=== PATIENT | female | born 1935 | race Caucasian/White ===

== ENCOUNTER 2016-08-03 10:00 | Inpatient (IN) | payer OTHER, BC ==
[2016-08-03 10:09] VITALS: BMI 48.0
--- NOTE | 2016-08-03 11:11 | PDOC ---
History of Present Illness - General Chief Complaint: Shortness of Breath Stated Complaint: sat 92% CONGESTIVE HEART FAILURE Time Seen by Provider: 08/03/16 11:08 History Source: Patient, Primary Care Provider Exam Limitations: No Limitations - History of Present Illness Initial Comments: 08/03/16 11:10 CHIEF COMPLAINT: Shortness of breath HISTORY OF PRESENT ILLNESS: This is a 81 year old female with a history of HTN, HLD, NIDDM, hypothyroidism, and LE edema (on Lasix 40mg po daily) referred by her PCP for evaluation of worsening LE edema with new shortness of breath/CARROLL ( < 1 block ET) since yesterday. She denies chest pain. She has had some dry cough. She denies fevers/chills or any other symptoms. V/s on arrival are notable for P 102 and SpO2 92% on RA. PCP is Dr. Beth REVIEW OF SYSTEMS: GENERAL/CONSTITUTIONAL: No fever or chills. No weakness. No weight change. HEAD, EYES, EARS, NOSE AND THROAT: No change in vision. No ear pain or discharge. No sore throat. CARDIOVASCULAR: No chest pain or palpitations. Worsening LE edema. RESPIRATORY: Shortness of breath, dyspnea on minimal exertion. GASTROINTESTINAL: No nausea, vomiting, diarrhea or constipation. GENITOURINARY: No dysuria, frequency, or change in urination. MUSCULOSKELETAL: No joint or muscle swelling or pain. No neck or back pain. SKIN: No rash or easy bruising. NEUROLOGIC: No headache, vertigo, loss of consciousness, or loss of sensation. PSYCHIATRIC: No depression or anxiety. ENDOCRINE: No increased thirst. No abnormal weight change. HEMATOLOGIC/LYMPHATIC: No anemia, easy bleeding, or history of blood clots. ALLERGIC/IMMUNOLOGIC: No hives or skin allergy. No latex allergy. PHYSICAL EXAM: GENERAL: The patient is awake, alert, and fully oriented, in no acute distress. ENT: Pupils equal, round and reactive to light, extraocular movements intact, sclera anicteric, conjunctiva clear. Neck supple. LUNGS: Rales at bases. Normal excursion. No respiratory distress or use of accessory muscles. CV: Irregular rhythm. S1/S2, no MRG. Cap refill < 2 sec. ABDOMEN: Soft, non-distended, non-tender. EXTREMITIES: 3+ LE edema bilaterally, no calaf tenderness. NEUROLOGICAL: Normal speech, normal gait. CN II-XII grossly intact. PSYCH: Normal mood, normal affect. SKIN: Warm, dry, normal turgor, no rashes or lesions noted. Past History - Past Medical History Allergies/Adverse Reactions: Allergies Allergy/AdvReac Type Severity Reaction Status Date / Time No Known Drug Allergies Allergy Verified 08/03/16 10:03 Home Medications: Ambulatory Orders Gabapentin 300 mg PO HS 04/18/13 Glipizide [Glipizide ER] 2.5 mg PO DAILY 04/18/13 Olmesartan/Hydrochlorothiazide [Benicar Hct 40-12.5 mg Tablet] 1 tab PO DAILY Furosemide [Lasix -] 40 mg PO DAILY 08/03/16 Levothyroxine Sodium [Synthroid] 0 mcg PO DAILY 08/03/16 Anemia: No Asthma: No Cancer: No Cardiac Disorders: No CVA: No COPD: No CHF: No Dementia: No Diabetes: Yes (x1 year non insulin dependent) GI Disorders: No Disorders: No HTN: Yes Hypercholesterolemia: Yes Liver Disease: No Seizures: No Thyroid Disease: Yes - Surgical History Abdominal Surgery: Yes Orthopedic Surgery: Yes (LEFT HIP PINNING 04/27) - Psycho/Social/Smoking Cessation Hx Anxiety: No Suicidal Ideation: No Smoking Status: Yes Smoking History: Never smoked Have you smoked in the past 12 months: No Number of Cigarettes Smoked Daily: 0 If you are a former smoker, when did you quit?: MORE THAN 20 yrs ago Information on smoking cessation initiated: No Hx Alcohol Use: No Drug/Substance Use Hx: No Substance Use Type: None Hx Substance Use Treatment: No *Physical Exam - Vital Signs Last Vital Signs Temp Pulse Resp BP Pulse Ox 98.0 F 102 H 18 131/90 92 L 08/03/16 10:05 08/03/16 10:05 08/03/16 10:05 08/03/16 10:05 08/03/16 10:05 ED Treatment Course - LABORATORY CBC & Chemistry Diagram: 08/03/16 11:20 08/03/16 11:20 - RADIOLOGY Radiology Studies Ordered: Category Date Time Status CHEST X-RAY PORTABLE* [RAD] Stat Radiology 08/03/16 11:09 Ordered DUPLEX VASCUL US-2LEGS [US] Stat Ultrasound 08/03/16 11:10 Ordered Medical Decision Making - Medical Decision Making 08/03/16 12:35 A/P: 81 year old female with dyspnea on minimal exertion, likely CHF. 1. EKG shows new onset Afib with ventricular rate 104 2. CXR 3. Cardiac labs 4. [id number] without CHF diagnosis- discussed AC with patient, will await labs 5. Echocardiogram and LE dopplers 6. Lasix 40mg IVP 7. Anticipate admission Labs notable for Plt 70 - baseline per PCP Ventricular rate 120s-130s; 5mg Cardizem IVP and 30mg po given Troponin <0.02 BNP 2314 08/03/16 13:[address] Wheeler covering Dr. Jeff- will start on Eliquis 5mg po bid, need to monitor plt Will admit to telemetry - discussed with Dr. Beth 08/03/16 14:57 Notified by reading tapper helper of dilated RV and septal bowing on echocardiogram. V/Q scan ordered to rule out PE given renal insufficiency. 08/03/16 15:[address] Francisco- dose for V/Q scan unavailable. Calculated CrCl is 60. Recommends we proceed with CTA. Not hydrating patient at this time given RV dilation/elevated BNP/septal bowing. *DC/Admit/Observation/Transfer Diagnosis at time of Disposition: New onset atrial fibrillation, Dyspnea on exertion, Thrombocytopenia - Discharge Dispostion Admit: Yes - Referrals
[2016-08-03] MEDS ORDERED: dilTIAZem HCL 30 MG TABLET (FP) PO ONE (11:24)
[2016-08-03] MEDS ORDERED: dilTIAZem HCL 50 MG/10 ML - 10 ML VIAL IVPUSH ONE (11:24)
[2016-08-03 11:26] LABS: BASOPHIL 0.7 % (0-2.0); EOSINOPHIL 1.3 % (0-4.5); MCH 29.4 pg (25.7-33.7); MCHC 31.9 g/dl (32.0-36.0); MEAN CELL VOLUME 92.3 fl (80-96); MEAN PLT VOLUME 9.5 fl (7.5-11.1); NEUTROPHILS 72.3 % (42.8-82.8); PLATELET COUNT 70 K/MM3 (134-434); RDW 16.9 % (11.6-15.6); WHITE BLOOD COUNT 3.7 K/mm3 (4.0-10.0)
[2016-08-03] MEDS ORDERED: dilTIAZem HCL 125 MG/25 ML - 25 ML VIAL ONE (11:26)
[2016-08-03] MEDS ORDERED: dilTIAZem HCL 30 MG TABLET (FP) ONE (11:26)
[2016-08-03] MEDS ORDERED: FUROSEMIDE 40 MG/4 ML INJECTABLE VIAL IVPUSH ONE ×2 (11:31→12:27)
[2016-08-03 11:53] LABS: ALBUMIN 3.7 g/dl (3.4-5.0); ANION GAP 8 (8-16); BILIRUBIN,TOTAL 0.6 mg/dL (0.2-1.0); CALCIUM 8.7 mg/dL (8.5-10.1); CO2 31 mmol/L (21-32); CREATININE 1.3 mg/dL (0.55-1.02); GLUCOSE,RANDOM 102 mg/dL (74-106); SGPT/ALT 21 U/L (12-78); TOT PROT 6.1 g/dl (6.4-8.2)
[2016-08-03 11:55] LABS: ALK PHOS 122 U/L (45-117); TROPONIN I < 0.02 ng/ml (0.00-0.05)
[2016-08-03 11:57] LABS: SGOT/AST 43 U/L (15-37)
[2016-08-03 11:59] LABS: INR 1.33 (0.82-1.09); PROTHROMBIN TIME (PATIENT) 14.7 SEC (9.98-11.88)
--- NOTE | 2016-08-03 12:51 | PDOC ---
*Physical Exam - Vital Signs Last Vital Signs Temp Pulse Resp BP Pulse Ox 98.0 F 102 H 18 119/71 99 08/03/16 10:05 08/03/16 11:38 08/03/16 11:38 08/03/16 11:38 08/03/16 11:38 ED Treatment Course - LABORATORY CBC & Chemistry Diagram: 08/05/16 05:45 08/05/16 05:45 - ADDITIONAL ORDERS Additional order review: Laboratory Results 08/03/16 08/03/16 08/03/16 11:31 11:20 11:20 INR 1.33 H Cancelled Sodium 142 Potassium 4.0 Chloride 103 Carbon Dioxide 31 Anion Gap 8 BUN 25 H D Creatinine 1.3 H Creat Clearance w eGFR 39.51 Random Glucose 102 D Calcium 8.7 Total Bilirubin 0.6 D AST 43 H D ALT 21 Alkaline Phosphatase 122 H D Creatine Kinase 87 Troponin I < 0.02 B-Natriuretic Peptide 2314.32 H Total Protein 6.1 L Albumin 3.7 08/03/16 11:20 RBC 3.85 MCV 92.3 MCHC 31.9 L RDW 16.9 H MPV 9.5 Neutrophils % 72.3 Lymphocytes % 13.5 D Monocytes % 12.2 H Eosinophils % 1.3 Basophils % 0.7 - Medications Given in the ED: ED Medications Discontinued Medications Generic Name Dose Route Start Last Admin Trade Name Freq PRN Reason Stop Dose Admin Diltiazem HCl 30 mg 08/03/16 11:24 08/03/16 11:39 Cardizem - PO 08/03/16 11:25 30 mg ONCE ONE Administration Diltiazem HCl 5 mg 08/03/16 11:24 08/03/16 11:39 Cardizem Injection - IVPUSH 08/03/16 11:25 5 mg ONCE ONE Administration Medical Decision Making - Medical Decision Making 08/03/16 12:51 Pt seen by the Advanced Practice Provider under my direct supervision Ancillary studies reviewed I agree with plan as outlined by the Advanced Practice Provider YAN Marie *DC/Admit/Observation/Transfer Diagnosis at time of Disposition: New onset atrial fibrillation, Dyspnea on exertion, Thrombocytopenia - Discharge Dispostion Disposition: ASSISTED FACILITY Condition at time of disposition: Improved
--- NOTE | 2016-08-03 13:21 | EKG ---
Test Reason : Blood Pressure : / mmHG Vent. Rate : 104 BPM Atrial Rate : 111 BPM P-R Int : 000 ms QRS Dur : 088 ms QT Int : 336 ms P-R-T Axes : 000 084 032 degrees QTc Int : 441 ms ATRIAL FIBRILLATION WITH RAPID VENTRICULAR RESPONSE LOW VOLTAGE QRS ABNORMAL ECG WHEN COMPARED WITH ECG OF 24-APR-2012 12:02, ATRIAL FIBRILLATION HAS REPLACED SINUS RHYTHM Confirmed by HAILEY ENCINAS MD ([id number]) on 08/03/2016 1:21:27 PM Referred By: Confirmed By:HAILEY ENCINAS MD
[2016-08-03] MEDS ORDERED: FUROSEMIDE 40 MG/4 ML INJECTABLE VIAL ONE (13:59)
[2016-08-03] MEDS: APIXABAN 5 MG TABLET PO SCH ×2 (15:08→21:56)
--- NOTE | 2016-08-03 16:28 | CON.CARD ---
Consult Consult Specialty:: Cardiology Reason for Consultation:: New AFIB - History of Present Illness Chief Complaint: LE edema adn Shortness of Breath History of Present Illness: This is a 81 year old female with a PMH of HTN, HLD, NIDDM, and hypothyroidism. She has noticed increasing lower extremity edema over the last several weeks. She more recently has noticed shortness of breath with one block CARROLL. She was noted in the ED to have atrial fibrillation. EKG 08/03/16 AFIB at 104 BPM with low QRS voltage, normal axis, and NSSTTW changes. No DVT on Lower extremity Vascular studies. CXR RUBA Echocardiogram 08/03/16: Moderate MR Trace AI Severe TR Normal LV systolic function RV systolic function is mildly reduced LA is mildly dilated RA is moderately dilated The EF is 62% The RVSP is 34.7 mmHG - Alcohol/Substance Use Hx Alcohol Use: No - Smoking History Smoking history: Never smoked Have you smoked in the past 12 months: No Aproximately how many cigarettes per day: 0 If you are a former smoker, when did you quit?: MORE THAN 20 yrs ago Home Medications - Allergies Allergies/Adverse Reactions: Allergies Allergy/AdvReac Type Severity Reaction Status Date / Time No Known Drug Allergies Allergy Verified 08/03/16 10:03 - Home Medications Home Medications: Ambulatory Orders Gabapentin 300 mg PO HS 04/18/13 Glipizide [Glipizide ER] 2.5 mg PO DAILY 04/18/13 Olmesartan/Hydrochlorothiazide [Benicar Hct 40-12.5 mg Tablet] 1 tab PO DAILY Furosemide [Lasix -] 40 mg PO DAILY 08/03/16 Levothyroxine Sodium [Synthroid] 0 mcg PO DAILY 08/03/16 Review of Systems Unable to obtain ROS, reason: As pewr HPI Vital Signs: Vital Signs Temperature 98.0 F 08/03/16 10:05 Pulse Rate 103 H 08/03/16 13:49 Respiratory Rate 24 08/03/16 13:49 Blood Pressure 123/85 08/03/16 13:49 O2 Sat by Pulse Oximetry (%) 98 08/03/16 13:49 Constitutional: Yes: Well Nourished, No Distress HENT: Yes: WNL Neck: Yes: WNL Respiratory: Yes: CTA Bilaterally Gastrointestinal: Yes: Soft Cardiovascular: Yes: Pulse Irregular Heart Sounds: Yes: S1, S2 (2/6 J[place], varies with respiration) Edema: Yes (3++ pitting edema bilate ) Neurological: Yes: Oriented, Aphasia (Grossly non focal) - Other Data Labs, Other Data: INR, PTT INR 1.33 (0.82-1.09) H 08/03/16 11:31 Assessment/Plan Gabapentin 300 mg PO HS 04/18/13 Glipizide [Glipizide ER] 2.5 mg PO DAILY 04/18/13 Olmesartan/Hydrochlorothiazide [Benicar Hct 40-12.5 mg Tablet] 1 tab PO DAILY Furosemide [Lasix -] 40 mg PO DAILY 08/03/16 Levothyroxine Sodium [Synthroid] 0 mcg PO DAILY 08/03/16 AFIB Newly discovered [id number], agree with Apixaban 5 mg PO BID (apixaban has the lowest dependence on renal clearance of all the NOAC's, so is the best choice given her renal insufficiency) Check TFT's Dilated RV, agree that we need to R/O PE Would admit to Telemetry Would favor Beta Blockers for rate control, Would start Metoprolol Tartrate 25 mg PO Q12 hours and uptitrate as needed Labs noted, Platlet count is 70, this should be followed closely but does not represent a contraindication to NOAC use. Diastolic CHF (HFpEF): Agree with IV Lasix 40 mg PO Q12 hours Daily I's/O's/Wt's/Lytes Will follow with you
--- NOTE | 2016-08-03 19:37 | HP ---
Admitting History and Physical - Primary Care Physician PCP: Kimberlyn Beth - Admission Chief Complaint: SOB/DYSPNEA/PALPITATIONS/EDEMA History of Present Illness: SENT FROM MY OFFICE RAPID IRREGULAR RYTHM/DYSPNEA/EDEMA 3+ LEGS, HISTORY OF DM/ HTN/OBESE/HIP AND KNEE REPLACEMENTS/CATARACT SX, LIPIDEMIA, UNSTEADY GAIT, SEVERE OA. 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: Yes: Peripheral Neuropathy Cardiovascular: Yes: HTN - Smoking History Smoking history: Never smoked Have you smoked in the past 12 months: No Aproximately how many cigarettes per day: 0 If you are a former smoker, when did you quit?: MORE THAN 20 yrs ago - Alcohol/Substance Use Hx Alcohol Use: No Home Medications - Allergies Allergies/Adverse Reactions: Allergies Allergy/AdvReac Type Severity Reaction Status Date / Time No Known Drug Allergies Allergy Verified 08/03/16 10:03 - Home Medications Home Medications: Ambulatory Orders Gabapentin 300 mg PO HS 04/18/13 Glipizide [Glipizide ER] 2.5 mg PO DAILY 04/18/13 Olmesartan/Hydrochlorothiazide [Benicar Hct 40-12.5 mg Tablet] 1 tab PO DAILY Furosemide [Lasix -] 40 mg PO DAILY 08/03/16 Levothyroxine Sodium [Synthroid] 0 mcg PO DAILY 08/03/16 Review of Systems - Review of Systems Constitutional: reports: Weakness Eyes: reports: No Symptoms HENT: reports: No Symptoms Neck: reports: No Symptoms Cardiovascular: reports: Palpitations, Shortness of Breath Respiratory: reports: Orthopnea Gastrointestinal: reports: No Symptoms Genitourinary: reports: No Symptoms Musculoskeletal: reports: Joint Pain Integumentary: reports: No Symptoms Neurological: denies: Weakness Endocrine: reports: No Symptoms Hematology/Lymphatic: reports: No Symptoms Physical Examination Vital Signs: Vital Signs Temperature 98.0 F 08/03/16 10:05 Pulse Rate 103 H 08/03/16 13:49 Respiratory Rate 24 08/03/16 13:49 Blood Pressure 123/85 08/03/16 13:49 O2 Sat by Pulse Oximetry (%) 98 08/03/16 13:49 Constitutional: Yes: Moderate Distress Eyes: Yes: WNL HENT: Yes: WNL Neck: Yes: WNL Cardiovascular: Yes: Pulse Irregular Respiratory: Yes: On Nasal O2, Poor Air Entry, SOB Gastrointestinal: Yes: WNL Renal/: Yes: WNL Musculoskeletal: Yes: WNL Extremities: Yes: WNL Edema: Yes Edema: LLE: 3+, RLE: 3+ Integumentary: Yes: WNL Wound/Incision: Yes: Clean/Dry Neurological: Yes: WNL ...Motor Strength: LLE, RLE Psychiatric: Yes: Other Problem List - Problems (1) Dyspnea on exertion Code(s): R06.09 - OTHER FORMS OF DYSPNEA (2) New onset atrial fibrillation Code(s): I48.91 - UNSPECIFIED ATRIAL FIBRILLATION (3) Thrombocytopenia Code(s): D69.6 - THROMBOCYTOPENIA, UNSPECIFIED (4) Diabetes 1.5, managed as type 2 Code(s): E10.9 - TYPE 1 DIABETES MELLITUS WITHOUT COMPLICATIONS (5) Hypertension Code(s): I10 - ESSENTIAL (PRIMARY) HYPERTENSION Qualifiers: Hypertension type: essential hypertension Qualified Code(s): I10 - Essential (primary) hypertension (6) Obesity (BMI 30-39.9) Code(s): E66.9 - OBESITY, UNSPECIFIED (7) Osteoarthritis Code(s): M19.90 - UNSPECIFIED OSTEOARTHRITIS, UNSPECIFIED SITE Assessment/Plan TELEMETRY ECHO CARDIO EVAL [facility] THYROID PANEL
[2016-08-03] MEDS ORDERED: OXYCODONE/APAP 5/325MG COMBO TABLET PO PRN (19:39)
[2016-08-03] MEDS: ACETAMINOPHEN 325 MG TABLET (FP) PO PRN (21:56)
[2016-08-03] MEDS: GABAPENTIN 300 MG CAPSULE (FP) PO SCH (21:56)
[2016-08-03] MEDS: oxyCODONE HCL 5 MG TABLET PO PRN (21:56)
[2016-08-04] MEDS: glipiZIDE-XL 2.5 MG TAB.ER.24 PO SCH (06:12)
[2016-08-04 07:39] LABS: BASOPHIL 0.6 % (0-2.0); EOSINOPHIL 2.3 % (0-4.5); MCH 29.7 pg (25.7-33.7); MCHC 32.2 g/dl (32.0-36.0); MEAN CELL VOLUME 92.4 fl (80-96); MEAN PLT VOLUME 9.9 fl (7.5-11.1); NEUTROPHILS 63.1 % (42.8-82.8); PLATELET COUNT 68 K/MM3 (134-434); RDW 16.4 % (11.6-15.6)
[2016-08-04] MEDS: oxyCODONE HCL 5 MG TABLET PO PRN ×2 (08:24→20:03)
[2016-08-04] MEDS: ACETAMINOPHEN 325 MG TABLET (FP) PO PRN ×2 (08:25→20:04)
[2016-08-04 09:23] LABS: ALBUMIN 3.4 g/dl (3.4-5.0); ALK PHOS 108 U/L (45-117); ANION GAP 7 (8-16); BILIRUBIN,TOTAL 0.7 mg/dL (0.2-1.0); CALCIUM 8.7 mg/dL (8.5-10.1); CHOLESTEROL 126 mg/dL (50-200); CO2 36 mmol/L (21-32); CREATININE 1.4 mg/dL (0.55-1.02); GLUCOSE,RANDOM 76 mg/dL (74-106); LDL CHOLESTEROL (ONLY SJRH) 65 mg/dL (5-100); SGOT/AST 32 U/L (15-37); SGPT/ALT 19 U/L (12-78); THYROID STIMULATING HORMONE 2.89 uIU/ml (0.358-3.74); TOT PROT 5.5 g/dl (6.4-8.2)
[2016-08-04] MEDS: VALSARTAN 160 MG TABLET (UD) PO SCH (09:42)
[2016-08-04] MEDS: FUROSEMIDE 40 MG/4 ML INJECTABLE VIAL IVPB SCH (09:42)
[2016-08-04] MEDS: APIXABAN 5 MG TABLET PO SCH ×2 (09:42→21:36)
[2016-08-04] MEDS: GABAPENTIN 300 MG CAPSULE (FP) PO SCH ×2 (09:42→21:36)
[2016-08-04] MEDS ORDERED: METOPROLOL TARTRATE 25 MG TABLET (FP) ONE (10:37)
[2016-08-04] MEDS: METOPROLOL TARTRATE 25 MG TABLET (FP) PO SCH ×2 (10:54→21:36)
--- NOTE | 2016-08-04 14:18 | PN ---
Progress Note, Physician Chief Complaint: Cardiology FU No complaints Telem Afib with HR 80 no pauses. - Current Medication List Current Medications: Active Medications Acetaminophen (Tylenol -) 650 mg PO Q6H PRN PRN Reason: PAIN LEVEL 6-10 Last Admin: 08/04/16 08:25 Dose: 650 mg Apixaban (Eliquis -) 5 mg PO BID [facility] Last Admin: 08/04/16 09:42 Dose: 5 mg Furosemide (Lasix Injection -) 40 mg IVPB DAILY [facility] Last Admin: 08/04/16 09:42 Dose: 40 mg Gabapentin (Neurontin -) 300 mg PO BID [facility] Last Admin: 08/04/16 09:42 Dose: 300 mg Glipizide (Glucotrol Xl -) 2.5 mg PO DAILY@0700 [facility] Last Admin: 08/04/16 06:12 Dose: 2.5 mg Metoprolol Tartrate (Lopressor -) 25 mg PO BID [facility] Last Admin: 08/04/16 10:54 Dose: 25 mg Oxycodone HCl (Roxicodone -) 10 mg PO Q6H PRN PRN Reason: PAIN LEVEL 6-10 Last Admin: 08/04/16 08:24 Dose: 10 mg Valsartan (Diovan -) 160 mg PO DAILY [facility] Last Admin: 08/04/16 09:42 Dose: 160 mg - Objective Vital Signs: Vital Signs Temperature 98 F 08/04/16 10:00 Pulse Rate 114 H 08/04/16 10:00 Respiratory Rate 18 08/04/16 10:00 Blood Pressure 134/88 08/04/16 10:00 O2 Sat by Pulse Oximetry (%) 99 08/04/16 09:00 Constitutional: Yes: Obese Eyes: Yes: Conjunctiva Clear, EOM Intact HENT: Yes: Atraumatic, Normocephalic Neck: Yes: Supple, Trachea Midline Cardiovascular: Yes: Pulse Irregular Respiratory: Yes: CTA Bilaterally Gastrointestinal: Yes: Normal Bowel Sounds Edema: Yes Edema: LLE: 2+, RLE: 2+ Labs: CBC, BMP 08/04/16 05:40 08/04/16 05:40 INR, PTT INR 1.33 (0.82-1.09) H 08/03/16 11:31 CT PE 08/03/16 Unremarkable examination. There is no gross evidence of a pulmonary embolus in the main pulmonary artery and its proximal branches, bilaterally Patchy opacities/airspace disease/infiltrates in the left upper lobe as well as bibasal atelectatic changes and probable infiltrates with small bilateral pleural effusion. Laboratory Tests 08/04/16 08/04/16 05:40 05:40 TSH 2.89 Free T4 0.98 Laboratory Tests 08/03/16 08/04/16 08/04/16 11:20 05:40 05:40 B-Natriuretic Peptide 2314.32 H Problem List - Problems (1) Dyspnea on exertion Code(s): R06.09 - OTHER FORMS OF DYSPNEA (2) New onset atrial fibrillation Code(s): I48.91 - UNSPECIFIED ATRIAL FIBRILLATION (3) Thrombocytopenia Code(s): D69.6 - THROMBOCYTOPENIA, UNSPECIFIED Assessment/Plan HR control is reasonable on current therapy. COntinue diuretic therapy for Rt sided volume overload Monitor H/H on Eliquis. Will see as needed. Out patient cardiology follow up
--- NOTE | 2016-08-04 16:01 | PN ---
Progress Note, Physician Chief Complaint: AWAKE, ALERT DENIES CHEST PAIN NO DYSPNEA/DIZZINESS - Current Medication List Current Medications: Active Medications Acetaminophen (Tylenol -) 650 mg PO Q6H PRN PRN Reason: PAIN LEVEL 6-10 Last Admin: 08/04/16 08:25 Dose: 650 mg Apixaban (Eliquis -) 5 mg PO BID [facility] Last Admin: 08/04/16 09:42 Dose: 5 mg Furosemide (Lasix Injection -) 40 mg IVPB DAILY [facility] Last Admin: 08/04/16 09:42 Dose: 40 mg Gabapentin (Neurontin -) 300 mg PO BID [facility] Last Admin: 08/04/16 09:42 Dose: 300 mg Glipizide (Glucotrol Xl -) 2.5 mg PO DAILY@0700 [facility] Last Admin: 08/04/16 06:12 Dose: 2.5 mg Metoprolol Tartrate (Lopressor -) 25 mg PO BID [facility] Last Admin: 08/04/16 10:54 Dose: 25 mg Oxycodone HCl (Roxicodone -) 10 mg PO Q6H PRN PRN Reason: PAIN LEVEL 6-10 Last Admin: 08/04/16 08:24 Dose: 10 mg Valsartan (Diovan -) 160 mg PO DAILY [facility] Last Admin: 08/04/16 09:42 Dose: 160 mg - Objective Vital Signs: Vital Signs Temperature 98.2 F 08/04/16 14:31 Pulse Rate 89 08/04/16 14:31 Respiratory Rate 18 08/04/16 14:31 Blood Pressure 110/61 08/04/16 14:31 O2 Sat by Pulse Oximetry (%) 99 08/04/16 09:00 Constitutional: Yes: No Distress Eyes: Yes: WNL HENT: Yes: WNL Neck: Yes: WNL Cardiovascular: Yes: Pulse Irregular Respiratory: Yes: WNL Gastrointestinal: Yes: WNL Genitourinary: Yes: WNL Musculoskeletal: Yes: Muscle Weakness Extremities: Yes: Deformity Edema: Yes Edema: LLE: 2+, RLE: 2+ Peripheral Pulses WNL: Yes Integumentary: Yes: WNL Wound/Incision: Yes: Clean/Dry Neurological: Yes: Unsteady Gait ...Motor Strength: LLE, RLE Psychiatric: Yes: WNL Labs: CBC, BMP 08/04/16 05:40 08/04/16 05:40 INR, PTT INR 1.33 (0.82-1.09) H 08/03/16 11:31 Problem List - Problems (1) Dyspnea on exertion Code(s): R06.09 - OTHER FORMS OF DYSPNEA (2) New onset atrial fibrillation Code(s): I48.91 - UNSPECIFIED ATRIAL FIBRILLATION (3) Thrombocytopenia Code(s): D69.6 - THROMBOCYTOPENIA, UNSPECIFIED (4) Diabetes 1.5, 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 CHECK STOOL FOR OCCULT BLOOD THYROID PANEL
[2016-08-05] MEDS: oxyCODONE HCL 5 MG TABLET PO PRN ×3 (01:57→22:12)
[2016-08-05] MEDS: ACETAMINOPHEN 325 MG TABLET (FP) PO PRN ×3 (01:57→22:13)
[2016-08-05] MEDS: glipiZIDE-XL 2.5 MG TAB.ER.24 PO SCH (06:33)
[2016-08-05 07:26] LABS: MCH 29.8 pg (25.7-33.7); MCHC 32.3 g/dl (32.0-36.0); MEAN CELL VOLUME 92.2 fl (80-96); MEAN PLT VOLUME 10.1 fl (7.5-11.1); PLATELET COUNT 66 K/MM3 (134-434); RDW 16.6 % (11.6-15.6); WHITE BLOOD COUNT 2.8 K/mm3 (4.0-10.0)
[2016-08-05 08:20] LABS: ANION GAP 5 (8-16); CALCIUM 8.7 mg/dL (8.5-10.1); CO2 39 mmol/L (21-32); CREATININE 1.4 mg/dL (0.55-1.02); GLUCOSE,RANDOM 92 mg/dL (74-106)
--- NOTE | 2016-08-05 08:57 | PN ---
Progress Note, Physician Chief Complaint: AWAKE ALERT TOLERATING MEALS WELL NO CP/SOB - Current Medication List Current Medications: Active Medications Acetaminophen (Tylenol -) 650 mg PO Q6H PRN PRN Reason: PAIN LEVEL 6-10 Last Admin: 08/05/16 01:57 Dose: 650 mg Apixaban (Eliquis -) 5 mg PO BID [facility] Last Admin: 08/04/16 21:36 Dose: 5 mg Furosemide (Lasix Injection -) 40 mg IVPB DAILY [facility] Last Admin: 08/04/16 09:42 Dose: 40 mg Gabapentin (Neurontin -) 300 mg PO BID [facility] Last Admin: 08/04/16 21:36 Dose: 300 mg Glipizide (Glucotrol Xl -) 2.5 mg PO DAILY@0700 [facility] Last Admin: 08/05/16 06:33 Dose: 2.5 mg Metoprolol Tartrate (Lopressor -) 25 mg PO BID [facility] Last Admin: 08/04/16 21:36 Dose: 25 mg Oxycodone HCl (Roxicodone -) 10 mg PO Q6H PRN PRN Reason: PAIN LEVEL 6-10 Last Admin: 08/05/16 01:57 Dose: 10 mg Valsartan (Diovan -) 160 mg PO DAILY [facility] Last Admin: 08/04/16 09:42 Dose: 160 mg - Objective Vital Signs: Vital Signs Temperature 97.4 F L 08/05/16 06:01 Pulse Rate 82 08/05/16 06:01 Respiratory Rate 20 08/05/16 06:01 Blood Pressure 112/74 08/05/16 06:01 O2 Sat by Pulse Oximetry (%) 99 08/04/16 21:00 Constitutional: Yes: No Distress Eyes: Yes: WNL HENT: Yes: WNL Neck: Yes: WNL Cardiovascular: Yes: Pulse Irregular Respiratory: Yes: WNL, On Nasal O2 Gastrointestinal: Yes: WNL Genitourinary: Yes: WNL Musculoskeletal: Yes: Muscle Weakness Extremities: Yes: WNL Edema: Yes Edema: LLE: 2+, RLE: 2+ Peripheral Pulses WNL: Yes Integumentary: Yes: WNL Wound/Incision: Yes: Clean/Dry Neurological: Yes: Unsteady Gait ...Motor Strength: LLE, RLE Psychiatric: Yes: WNL Labs: CBC, BMP 08/05/16 05:45 06/21/17 05:45 INR, PTT INR 1.33 (0.82-1.09) H 08/03/16 11:31 Problem List - Problems (1) Dyspnea on exertion Code(s): R06.09 - OTHER FORMS OF DYSPNEA (2) New onset atrial fibrillation Code(s): I48.91 - UNSPECIFIED ATRIAL FIBRILLATION (3) Thrombocytopenia Code(s): D69.6 - THROMBOCYTOPENIA, UNSPECIFIED (4) Diabetes 1.5, 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
[2016-08-05] MEDS: VALSARTAN 160 MG TABLET (UD) PO SCH (09:23)
[2016-08-05] MEDS: APIXABAN 5 MG TABLET PO SCH ×2 (09:23→22:08)
[2016-08-05] MEDS: GABAPENTIN 300 MG CAPSULE (FP) PO SCH ×2 (09:23→22:08)
[2016-08-05] MEDS: FUROSEMIDE 40 MG/4 ML INJECTABLE VIAL IVPB SCH (09:23)
[2016-08-05] MEDS: METOPROLOL TARTRATE 25 MG TABLET (FP) PO SCH ×2 (09:23→22:08)
[2016-08-06] MEDS: oxyCODONE HCL 5 MG TABLET PO PRN (04:45)
[2016-08-06] MEDS: ACETAMINOPHEN 325 MG TABLET (FP) PO PRN (04:46)
[2016-08-06 06:06] LABS: SERUM IRON 50 ug/dL (27-139); TOTAL IRON BINDING CAPACITY 293 ug/dL (250-450); UIBC 243 ug/dL (118-369)
[2016-08-06] MEDS ORDERED: PT OWN MED DRAWER 7, Y5N ONE (06:06)
[2016-08-06] MEDS: glipiZIDE-XL 2.5 MG TAB.ER.24 PO SCH (06:08)
--- NOTE | 2016-08-06 08:27 | DS ---
Physical Examination Vital Signs: Vital Signs Temperature 98.1 F 08/06/16 06:00 Pulse Rate 78 08/06/16 06:00 Respiratory Rate 20 08/06/16 06:00 Blood Pressure 98/51 08/06/16 06:00 O2 Sat by Pulse Oximetry (%) 97 08/06/16 06:00 Constitutional: Yes: Mild Distress Eyes: Yes: WNL HENT: Yes: WNL Neck: Yes: WNL Cardiovascular: Yes: Pulse Irregular Respiratory: Yes: WNL Gastrointestinal: Yes: WNL Renal/: Yes: WNL Musculoskeletal: Yes: Joint Stiffness, Muscle Pain, Muscle Weakness Extremities: Yes: WNL Edema: Yes Edema: LLE: 1+, RLE: 1+ Peripheral Pulses WNL: Yes Integumentary: Yes: WNL Wound/Incision: Yes: Clean/Dry Neurological: Yes: Pre-Existing Deficit, Unsteady Gait ...Motor Strength: LLE, RLE Psychiatric: Yes: Other Labs: CBC, BMP 08/05/16 05:45 08/05/16 05:45 Discharge Summary Reason For Visit: NEW ONSET ATRIAL FIB,THROMBOCYTOPENIA Current Active Problems Diabetes 1.5, managed as type 2 (Acute) Dyspnea on exertion (Acute) Hypertension (Acute) New onset atrial fibrillation (Acute) Obesity (BMI 30-39.9) (Acute) Osteoarthritis (Acute) Thrombocytopenia (Acute) Procedures: Principal: echo Other Procedures: labs Hospital Course: admitted acute afib acute chf with edema, diuresed iv lasix, and started on eliquis, snf for PT Condition: Improved - Instructions Diet, Activity, Other Instructions: low salt/ada Referrals: Kimberlyn Beth MD [Primary Care Provider] - Disposition: LONGTERM FACILITY - Home Medications Comprehensive Discharge Medication List: Ambulatory Orders Gabapentin 300 mg PO HS 04/18/13 Glipizide [Glipizide ER] 2.5 mg PO DAILY 04/18/13 Olmesartan/Hydrochlorothiazide [Benicar Hct 40-12.5 mg Tablet] 1 tab PO DAILY Furosemide [Lasix -] 40 mg PO DAILY 08/03/16 Levothyroxine Sodium [Synthroid] 0 mcg PO DAILY 08/03/16
[2016-08-06] MEDS: APIXABAN 5 MG TABLET PO SCH (09:44)
[2016-08-06] MEDS: METOPROLOL TARTRATE 25 MG TABLET (FP) PO SCH (09:44)
[2016-08-06] MEDS: FUROSEMIDE 40 MG TABLET (FP) PO SCH ×2 (09:44→09:48)
[2016-08-06] MEDS: VALSARTAN 160 MG TABLET (UD) PO SCH (09:44)
[2016-08-06] MEDS: GABAPENTIN 300 MG CAPSULE (FP) PO SCH (09:44)
[2016-08-06 10:26] VITALS: BP 116/64; PULSE 100; TEMP 98
== END 2016-08-06 10:44 | DRG 308 ==
LOC: JER 10:00 → JERBED 13:12 → J4W 19:41
PROVIDERS: ADMIT Family Medicine; ATTEND Family Medicine
DX: I48.91 Unspecified atrial fibrillation (principal); I50.31 Acute diastolic (congestive) heart failure; Z68.42 Body mass index [BMI] 45.0-49.9, adult; E78.5 Hyperlipidemia, unspecified; R06.09 Other forms of dyspnea; E03.9 Hypothyroidism, unspecified; I11.0 Hypertensive heart disease with heart failure; I08.1 Rheumatic disorders of both mitral and tricuspid valves; M19.90 Unspecified osteoarthritis, unspecified site; R26.81 Unsteadiness on feet; E11.42 Type 2 diabetes mellitus with diabetic polyneuropathy; D69.6 Thrombocytopenia, unspecified; E66.01 Morbid (severe) obesity due to excess calories; Z96.659 Presence of unspecified artificial knee joint; Z96.649 Presence of unspecified artificial hip joint
CPT/HCPCS: 36415; 71010-TC; 71275-TC; 80048; 80053; 80061; 82550; 83036; 83540; 83550; 83721; 83880; 84439; 84443; 84484; 85025; 85027; 85610; 93005; 93010; 93306-TC; 93970-TC; 97116-GP; 97161-GP; 99284-25

== ENCOUNTER 2017-10-27 12:21 | Emergency (ER) | payer OTHER, BC ==
[2017-10-27 12:43] VITALS: BP 118/57; PULSE 98; TEMP 98.3; BMI 42.9
--- NOTE | 2017-10-27 13:25 | PDOC ---
History of Present Illness - General Chief Complaint: Pain, Acute Stated Complaint: RT KNEE PAIN Time Seen by Provider: 10/27/17 12:52 - History of Present Illness Initial Comments: 82-year-old female with multiple comorbidities including atrial fibrillation. She is on [place] for that presents for evaluation of right knee pain. She had a total knee arthroplasty 4 years ago today she woke up with pain. No precipitating traumatic event. 10/27/17 13:23 Past History - Past Medical History Allergies/Adverse Reactions: Allergies Allergy/AdvReac Type Severity Reaction Status Date / Time No Known Drug Allergies Allergy Verified 10/27/17 12:43 Home Medications: Ambulatory Orders Gabapentin 300 mg PO HS 04/18/13 Glipizide [Glipizide ER] 2.5 mg PO DAILY 04/18/13 Furosemide [Lasix -] 40 mg PO DAILY 08/03/16 Levothyroxine Sodium [Synthroid] 44 mcg PO DAILY 08/03/16 Apixaban [Eliquis -] 5 mg PO BID tablet 08/06/16 Metoprolol Tartrate [Lopressor -] 25 mg PO BID tablet 08/06/16 Valsartan [Diovan] 160 mg PO DAILY tablet 08/06/16 oxyCODONE HCL [Roxicodone -] 10 mg PO Q6H PRN #0 tablet MDD 4 08/06/16 Oxycodone HCl/Acetaminophen [Oxycodone-Acetaminophen 10-325] 1 each PO ASDIR 02/01 Anemia: No Asthma: No Cancer: No Cardiac Disorders: Yes (afib) CVA: No COPD: No CHF: No Dementia: No Diabetes: Yes (x1 year non insulin dependent) GI Disorders: No Disorders: No HTN: Yes Hypercholesterolemia: Yes Liver Disease: No Seizures: No Thyroid Disease: Yes - Surgical History Abdominal Surgery: Yes (hysterectomy) Orthopedic Surgery: Yes (LEFT HIP PINNING 04/27) - Suicide/Smoking/Psychosocial Hx Smoking Status: Yes Smoking History: Never smoked Have you smoked in the past 12 months: No Number of Cigarettes Smoked Daily: 0 If you are a former smoker, when did you quit?: MORE THAN 20 yrs ago Information on smoking cessation initiated: No Hx Alcohol Use: No Drug/Substance Use Hx: No Substance Use Type: None Hx Substance Use Treatment: No Review of Systems - Review of Systems Musculoskeletal: Yes: Joint Pain All Other Systems: Reviewed and Negative *Physical Exam - Vital Signs Last Vital Signs Temp Pulse Resp BP Pulse Ox 98.3 F 98 H 18 118/57 97 10/27/17 12:40 10/27/17 12:40 10/27/17 12:40 10/27/17 12:40 10/27/17 12:40 - Physical Exam Comments: Right knee skin color and temperature are normal there is a well-healed midline incision. Range of motion 0-90 with some discomfort. She has no evidence of instability. Thigh and calf are soft and nontender. She has no gross sensorimotor deficits. She is neurovascularly intact. 10/27/17 13:23 ED Treatment Course - RADIOLOGY Radiology Studies Ordered: Category Date Time Status KNEE 2 POS-RIGHT [RAD] Stat Radiology 10/27/17 13:01 Taken Medical Decision Making - Medical Decision Making 10/27/17 13:24 X-rays of the right knee show right knee total arthroplasty in good position without signs of where *DC/Admit/Observation/Transfer Diagnosis at time of Disposition: History of total knee arthroplasty - Discharge Dispostion Disposition: HOME Condition at time of disposition: Stable Decision to Admit order: No - Referrals Referrals: Porfirio Condon MD [Staff Physician] - - Patient Instructions Additional Instructions: Your x-ray today was normal. Follow-up with her orthopedic surgeon in 2-3 days for further evaluation and treatment options. He may continue to take her regular pain medication as scheduled. Return to the emergency room should symptoms worsen - Post Discharge Activity
== END 2017-10-27 13:48 | disposition home or self-care (01) ==
LOC: JERFT 12:21
DX: M25.561 Pain in right knee (principal); I48.91 Unspecified atrial fibrillation; I10 Essential (primary) hypertension; E78.00 Pure hypercholesterolemia, unspecified; E07.9 Disorder of thyroid, unspecified; E11.9 Type 2 diabetes mellitus without complications; Z79.4 Long term (current) use of insulin; Z79.01 Long term (current) use of anticoagulants
CPT/HCPCS: 73560-TC-RT-FY; 99281-25

== ENCOUNTER 2018-03-18 12:15 | Observation (INO) | payer OTHER, BC ==
--- NOTE | 2018-03-18 12:59 | PDOC ---
History of Present Illness <Luz Maria Anderson - Last Filed: 03/18/18 14:56> - General History Source: Patient - History of Present Illness Occurred: reports: other Severity: reports: severe Upper Extremity Pain Location: left: hand <Trevor Hale - Last Filed: 03/18/18 16:29> - General Chief Complaint: Wound Stated Complaint: LT HAND SWOLLEN Time Seen by Provider: 03/18/18 12:36 Past History <Luz Maria Anderson - Last Filed: 03/18/18 14:56> - Past Medical History Anemia: No Asthma: No Cancer: No Cardiac Disorders: Yes (afib) CVA: No COPD: No CHF: No Dementia: No Diabetes: Yes (x1 year non insulin dependent) GI Disorders: No Disorders: No HTN: Yes Hypercholesterolemia: Yes Liver Disease: No Seizures: No Thyroid Disease: Yes - Surgical History Abdominal Surgery: Yes (hysterectomy) Orthopedic Surgery: Yes (LEFT HIP PINNING 04/27) - Suicide/Smoking/Psychosocial Hx Smoking Status: Yes Smoking History: Never smoked Have you smoked in the past 12 months: No Number of Cigarettes Smoked Daily: 0 If you are a former smoker, when did you quit?: MORE THAN 20 yrs ago Information on smoking cessation initiated: No Hx Alcohol Use: No Drug/Substance Use Hx: No Substance Use Type: None Hx Substance Use Treatment: No <Trevor Hale - Last Filed: 03/18/18 16:29> - Past Medical History Allergies/Adverse Reactions: Allergies Allergy/AdvReac Type Severity Reaction Status Date / Time No Known Drug Allergies Allergy Verified 03/18/18 12:27 Home Medications: Ambulatory Orders Gabapentin 300 mg PO TID 04/18/13 Glipizide [Glipizide ER] 2.5 mg PO DAILY 04/18/13 Furosemide [Lasix -] 20 mg PO DAILY 08/03/16 Levothyroxine Sodium [Synthroid] 75 mcg PO DAILY 08/03/16 Apixaban [Eliquis -] 5 mg PO BID tablet 08/06/16 Valsartan [Diovan] 160 mg PO DAILY tablet 08/06/16 Ascorbic Acid [Vitamin C] 500 mg PO DAILY 03/18/18 Calcium/D3/Mag Ox/International Coordinator/Niels/Zn [Caltrate+D3 Plus Mineral Minis] 1 each PO DAILY 03/18/18 Cyanocobalamin [Vitamin B12 -] 1,000 mcg PO DAILY 03/18/18 Oxycodone HCl/Acetaminophen [Percocet 10-325 mg Tablet] 1 each PO QID 03/18/18 Vitamin E 400 unit PO BID 03/18/18 Review of Systems - Review of Systems Constitutional: No: Chills, Fever Respiratory: No: Shortness of Breath Cardiac (ROS): No: Chest Pain, Palpitations <Trevor Hale - Last Filed: 03/18/18 16:29> *Physical Exam - Vital Signs Last Vital Signs Temp Pulse Resp BP Pulse Ox 98.2 F 94 H 18 110/55 L 95 03/18/18 12:24 03/18/18 12:24 03/18/18 12:24 03/18/18 12:24 03/18/18 12:24 <Luz Maria Anderson - Last Filed: 03/18/18 14:56> - Vital Signs Last Vital Signs Temp Pulse Resp BP Pulse Ox 98.2 F 94 H 18 110/55 L 95 03/18/18 12:24 03/18/18 12:24 03/18/18 12:24 03/18/18 12:24 03/18/18 12:24 - Physical Exam General Appearance: Yes: Appropriately Dressed. No: Apparent Distress HEENT: positive: Normal Voice Neck: positive: Supple Respiratory/Chest: positive: Lungs Clear, Normal Breath Sounds. negative: Respiratory Distress Cardiovascular: positive: Regular Rate, S1, S2 Extremity: positive: Other (3+ edema w/ reddish/purplish discoloration to L hand diffusely, extending into distal forearm, +ttp to L index only, no increased warmth) Integumentary: positive: Dry, Warm Neurologic: positive: Fully Oriented, Alert, Normal Mood/Affect <Trevor Hale - Last Filed: 03/18/18 16:29> Moderate Sedation - Procedure Monitoring Vital Signs: Procedure Monitoring Vital Signs Temperature 98.2 F 03/18/18 12:24 Pulse Rate 94 H 03/18/18 12:24 Respiratory Rate 18 03/18/18 12:24 Blood Pressure 110/55 L 03/18/18 12:24 O2 Sat by Pulse Oximetry (%) 95 03/18/18 12:24 <Luz Maria Anderson - Last Filed: 03/18/18 14:56> - Procedure Monitoring Vital Signs: Procedure Monitoring Vital Signs Temperature 98.2 F 03/18/18 12:24 Pulse Rate 94 H 03/18/18 12:24 Respiratory Rate 18 03/18/18 12:24 Blood Pressure 110/55 L 03/18/18 12:24 O2 Sat by Pulse Oximetry (%) 95 03/18/18 12:24 <Trevor Hale - Last Filed: 03/18/18 16:29> ED Treatment Course - LABORATORY CBC & Chemistry Diagram: 03/18/18 13:45 03/18/18 13:45 - ADDITIONAL ORDERS Additional order review: Laboratory Results 03/18/18 03/18/18 03/18/18 13:56 13:45 13:45 Sodium 140 Potassium 4.5 Chloride 104 Carbon Dioxide 29 Anion Gap 7 L BUN 25 H Creatinine 1.1 Creat Clearance w eGFR 47.67 Random Glucose 86 Calcium 8.8 Total Bilirubin 0.8 AST 38 H ALT 17 Alkaline Phosphatase 169 H B-Natriuretic Peptide 4531.4 H Total Protein 6.2 L Albumin 3.1 L Urine Color Yellow Urine Appearance Clear Urine pH 5.0 Ur Specific [place] 1.019 Urine Protein Negative Urine Glucose (UA) Negative Urine Ketones Negative Urine Blood Negative Urine Nitrite Negative Urine Bilirubin Negative Urine Urobilinogen Negative Ur Leukocyte Esterase Trace Urine WBC (Auto) 2 Urine RBC (Auto) <1 Ur Epithelial Cells Rare Urine Mucus Rare 03/18/18 13:45 RBC 3.65 MCV 91.0 MCHC 33.9 RDW 15.1 MPV 10.1 Neutrophils % 82.9 H D Lymphocytes % 6.6 L D Monocytes % 9.7 Eosinophils % 0.6 Basophils % 0.2 - Consult/PCP Time Called: 14:56 (Paged Dr. Beth's service. Callback ext. [phone]) <Luz Maria Anderson - Last Filed: 03/18/18 14:56> - LABORATORY CBC & Chemistry Diagram: 03/18/18 13:45 03/18/18 13:45 - RADIOLOGY Radiology Studies Ordered: Category Date Time Status CHEST X-RAY PORTABLE* [RAD] Stat Radiology 03/18/18 12:56 Ordered HAND- LEFT [RAD] Stat Radiology 03/18/18 12:56 Ordered <Trevor Hale - Last Filed: 03/18/18 16:29> Medical Decision Making - Medical Decision Making 03/18/18 12:58 83-year-old female, history of NIDDM, HTN, HLd, afib on Eliquis, CHF on Lasix, uses 2 L of oxygen at home, here with worsening swelling to left hand. Patient states 3 days ago she noticed pain and swelling to left index finger that has since progressed to entire hand and extending into forearm. Denies any trauma. No fever or chills, worsening lower extremity edema, shortness of breath or chest pain. See exam LUE edema vs cellulitis, unlikely DVT as on eliquis for afib -pain control -labs -abx -admit Labs unremarkable. Dose of IV Clinda ordered. Will arrange admission with patient's PMD, Dr. Beth 03/18/18 15:21 Labs unremarkable. Case discussed with Dr. Beth's ROLLING MILL OPERATOR who recommends ultrasound rule out DVT, though aware that patient is on Eliquis. States she will come down to evaluate patient in ER. Pt to be admitted to obs <Trevor Hale - Last Filed: 03/18/18 16:29> *DC/Admit/Observation/Transfer <Luz Maria Adnerson - Last Filed: 03/18/18 14:56> - Discharge Dispostion Decision to Admit order: Yes <Trevor Hale - Last Filed: 03/18/18 16:29> Diagnosis at time of Disposition: Edema of hand - Discharge Dispostion Condition at time of disposition: Fair
[2018-03-18 14:02] LABS: BASO % 0.2 % (0-2.0); EOS % 0.6 % (0-4.5); HEMATOCRIT 33.2 % (32.4-45.2); HEMOGLOBIN 11.3 GM/dL (10.7-15.3); LYMPH % 6.6 % (8-40); MCH 30.9 pg (25.7-33.7); MCHC 33.9 g/dl (32.0-36.0); MEAN PLT VOLUME 10.1 fl (7.5-11.1); MONO % 9.7 % (3.8-10.2); NEUT % 82.9 % (42.8-82.8); PLATELET COUNT 142 K/MM3 (134-434); RBC 3.65 M/mm3 (3.60-5.2); RDW 15.1 % (11.6-15.6); WHITE BLOOD COUNT 6.8 K/mm3 (4.0-10.0)
[2018-03-18 14:11] LABS: URINE APPEARANCE CLEAR; URINE BILIRUBIN NEGATIVE (<2.0 mg/dL); URINE COLOR YELLOW; URINE GLUCOSE (UA) NEGATIVE (NEGATIVE); URINE KETONE NEGATIVE (NEGATIVE); URINE LEUK ESTERASE TRACE (NEGATIVE); URINE NITRITE NEGATIVE (NEGATIVE); URINE PROTEIN NEGATIVE (NEGATIVE); URINE UROBILINOGEN NEGATIVE mg/dL (0.2-1.0)
[2018-03-18 14:13] LABS: EPI CELLS RARE /HPF (FEW); URINE MUCUS RARE
[2018-03-18 14:38] LABS: ALBUMIN 3.1 g/dl (3.4-5.0); ALK PHOS 169 U/L (45-117); ANION GAP 7 MMOL/L (8-16); BILIRUBIN,TOTAL 0.8 mg/dL (0.2-1); BLOOD UREA NITROGEN 25 mg/dL (7-18); CALCIUM 8.8 mg/dL (8.5-10.1); CHLORIDE 104 mmol/L (98-107); CO2 29 mmol/L (21-32); CREATININE 1.1 mg/dL (0.55-1.3); GLUCOSE,RANDOM 86 mg/dL (74-106); POTASSIUM 4.5 mmol/L (3.5-5.1); SGOT/AST 38 U/L (15-37); SGPT/ALT 17 U/L (13-61); SODIUM 140 mmol/L (136-145); TOT PROT 6.2 g/dl (6.4-8.2)
[2018-03-18] MEDS ORDERED: CLINDAMYCIN 600MG PREMIX IVPB 600 MG/50 ML BAG IVPB ONE ×2 (14:49→15:17)
[2018-03-18] MEDS ORDERED: ACETAMINOPHEN 1000 MG/100 ML VIAL (NON FORMULARY) IVPB ONE (14:52)
[2018-03-18] MEDS ORDERED: ACETAMINOPHEN INJECTION 100 ML IVPB ONE ×2 (15:17→16:00)
--- NOTE | 2018-03-18 16:25 | HP ---
Admitting History and Physical - Primary Care Physician PCP: Kimberlyn Beth - Admission Chief Complaint: L hand pain and swelling History of Present Illness: Patient is an 83 y/o female wih past medical history of A-fib, HTN, hypothyroidism, DM presented to ER with complaints of L hand pain and swelling. Patient states that on Wednesday she noticed swelling to her fingers but did not think it was anything serious. Patient denies trauma or injury to hand. States pain is sharp and increases with movement. On examination edema and erythema noted to L hand extending to above wrist, warm and tender to touch. Denies sob, chest pain, dizziness. 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: Peripheral Neuropathy Cardiovascular: Yes: HTN Endocrine: Yes: Diabetes Mellitus, Hypothyroidism - Past Surgical History Past Surgical History: Yes: None - Smoking History Smoking history: Never smoked Have you smoked in the past 12 months: No Aproximately how many cigarettes per day: 0 If you are a former smoker, when did you quit?: MORE THAN 20 yrs ago - Alcohol/Substance Use Hx Alcohol Use: No History of Substance Use: reports: None - Social History Usual Living Arrangement: Yes: Alone ADL: Independent <Yoko Vogt - Last Filed: 03/18/18 17:47> Home Medications <Yoko Vogt - Last Filed: 03/18/18 17:47> <Kimberlyn Beth - Last Filed: 03/19/18 12:23> - Allergies Allergies/Adverse Reactions: Allergies Allergy/AdvReac Type Severity Reaction Status Date / Time No Known Drug Allergies Allergy Verified 03/18/18 12:27 - Home Medications Home Medications: Ambulatory Orders Gabapentin 300 mg PO TID 04/18/13 Glipizide [Glipizide ER] 2.5 mg PO DAILY 04/18/13 Furosemide [Lasix -] 20 mg PO DAILY 08/03/16 Levothyroxine Sodium [Synthroid] 75 mcg PO DAILY 08/03/16 Apixaban [Eliquis -] 5 mg PO BID tablet 08/06/16 Valsartan [Diovan] 160 mg PO DAILY tablet 08/06/16 Ascorbic Acid [Vitamin C] 500 mg PO DAILY 03/18/18 Calcium/D3/Mag Ox/Senior Compensation Analyst/Niels/Zn [Caltrate+D3 Plus Mineral Minis] 1 each PO DAILY 03/18/18 Cyanocobalamin [Vitamin B12 -] 1,000 mcg PO DAILY 03/18/18 Oxycodone HCl/Acetaminophen [Percocet 10-325 mg Tablet] 1 each PO QID 03/18/18 Vitamin E 400 unit PO BID 03/18/18 Review of Systems - Review of Systems Constitutional: reports: No Symptoms Eyes: reports: No Symptoms HENT: reports: No Symptoms Neck: reports: No Symptoms Cardiovascular: reports: No Symptoms Respiratory: reports: No Symptoms Gastrointestinal: reports: No Symptoms Genitourinary: reports: No Symptoms Breasts: reports: No Symptoms Reported Musculoskeletal: reports: No Symptoms Integumentary: reports: Other (Erythema, edema to L hand) Neurological: reports: No Symptoms Endocrine: reports: No Symptoms Hematology/Lymphatic: reports: No Symptoms Psychiatric: reports: No Symptoms <Yoko Vogt - Last Filed: 03/18/18 17:47> Physical Examination Vital Signs: Vital Signs Temperature 98.2 F 03/18/18 12:24 Pulse Rate 94 H 03/18/18 12:24 Respiratory Rate 18 03/18/18 12:24 Blood Pressure 110/55 L 03/18/18 12:24 O2 Sat by Pulse Oximetry (%) 95 03/18/18 12:24 Constitutional: Yes: Well Nourished, No Distress, Calm Eyes: Yes: Conjunctiva Clear HENT: Yes: Normocephalic Neck: Yes: Supple Cardiovascular: Yes: Regular Rate and Rhythm Respiratory: Yes: Regular, CTA Bilaterally Gastrointestinal: Yes: Normal Bowel Sounds, Soft Musculoskeletal: Yes: Muscle Weakness Extremities: Yes: Erythema (L hand), Other (L hand warm to touch) Edema: Yes (L hand) Integumentary: Yes: Erythema (L hand) Neurological: Yes: Alert, Oriented Psychiatric: Yes: Alert, Oriented Labs: CBC, BMP 03/18/18 13:45 03/18/18 13:45 <Yoko Vogt - Last Filed: 03/18/18 17:47> Vital Signs: Vital Signs Temperature 97.3 F L 03/19/18 11:40 Pulse Rate 98 H 03/19/18 11:40 Respiratory Rate 20 03/19/18 11:40 Blood Pressure 125/63 03/19/18 11:40 O2 Sat by Pulse Oximetry (%) 95 03/19/18 08:44 Labs: CBC, BMP 03/18/18 13:45 03/18/18 13:45 <Kimberlyn Beth - Last Filed: 03/19/18 12:23> Problem List - Problems (1) Edema of hand Assessment/Plan: -ID consult for cellulitis -LUE US to R/O dvt -tylenol PRN for pain Code(s): R60.0 - LOCALIZED EDEMA (2) Diabetes 1.5, managed as type 2 Assessment/Plan: -cont with glipizide -BGM ACHS, ISS -diabetic diet -HgA1c ordered Code(s): E10.9 - TYPE 1 DIABETES MELLITUS WITHOUT COMPLICATIONS (3) Hypertension Assessment/Plan: -cont with lasix and diovan -low Na diet Code(s): I10 - ESSENTIAL (PRIMARY) HYPERTENSION Qualifiers: Hypertension type: essential hypertension Qualified Code(s): I10 - Essential (primary) hypertension (4) New onset atrial fibrillation Assessment/Plan: -cont with Eliquis Code(s): I48.91 - UNSPECIFIED ATRIAL FIBRILLATION <Yoko Vogt - Last Filed: 03/18/18 17:47> - Problems (1) Cellulitis Code(s): L03.90 - CELLULITIS, UNSPECIFIED (2) Left hand pain Code(s): M79.642 - PAIN IN LEFT HAND (3) Edema of hand Code(s): R60.0 - LOCALIZED EDEMA (4) Diabetes 1.5, managed as type 2 Code(s): E10.9 - TYPE 1 DIABETES MELLITUS WITHOUT COMPLICATIONS (5) History of total knee arthroplasty Code(s): Z96.659 - PRESENCE OF UNSPECIFIED ARTIFICIAL KNEE JOINT (6) Hypertension Code(s): I10 - ESSENTIAL (PRIMARY) HYPERTENSION Qualifiers: Hypertension type: essential hypertension Qualified Code(s): I10 - Essential (primary) hypertension (7) Obesity (BMI 30-39.9) Code(s): E66.9 - OBESITY, UNSPECIFIED (8) Osteoarthritis Code(s): M19.90 - UNSPECIFIED OSTEOARTHRITIS, UNSPECIFIED SITE <Kimberlyn Beth - Last Filed: 03/19/18 12:23> Assessment/Plan PATIENT SEEN AND EXAMINED AND I AGREE WITH ABOVE NOTE <Kimberlyn Beth - Last Filed: 03/19/18 12:23>
[2018-03-18 20:25] VITALS: BMI 41.3
[2018-03-18] MEDS ORDERED: INSULIN (NOVOLOG) ASPART 100 UNITS/ML 10ML VIAL ONE (20:54)
[2018-03-18] MEDS: APIXABAN 5 MG TABLET PO SCH (21:04)
[2018-03-18] MEDS: GABAPENTIN 300 MG CAPSULE (FP) PO SCH (21:04)
[2018-03-18] MEDS: INSULIN SLIDING SCALE (NOVOLOG) 1 VIAL SQ SCH (21:05)
[2018-03-18] MEDS ORDERED: oxyCODONE HCL 5 MG TABLET PO ONE (21:18)
[2018-03-18] MEDS: ACETAMINOPHEN 325 MG TABLET (FP) PO PRN (21:29)
[2018-03-19] MEDS: LEVOTHYROXINE NA 75 MCG TABLET (FP) PO SCH (06:00)
[2018-03-19] MEDS: glipiZIDE 5 MG TABLET (FP) PO SCH (06:22)
[2018-03-19] MEDS: GABAPENTIN 300 MG CAPSULE (FP) PO SCH ×3 (06:22→21:23)
[2018-03-19] MEDS: INSULIN SLIDING SCALE (NOVOLOG) 1 VIAL SQ SCH ×4 (06:23→21:29)
[2018-03-19] MEDS: CYANOCOBALAMIN 1,000 MCG TABLET (FP) PO SCH (09:20)
[2018-03-19] MEDS: ASCORBIC ACID 500 MG TABLET (FP) PO SCH (09:20)
[2018-03-19] MEDS: FUROSEMIDE 20 MG TABLET (FP) PO SCH (09:20)
[2018-03-19] MEDS: VALSARTAN 160 MG TABLET (UD) PO SCH (09:20)
[2018-03-19] MEDS: APIXABAN 5 MG TABLET PO SCH ×2 (09:20→21:23)
[2018-03-19] MEDS: oxyCODONE HCL 5 MG TABLET PO PRN ×2 (10:59→22:47)
--- NOTE | 2018-03-19 12:22 | PN ---
Progress Note, Physician Chief Complaint: AWAKE ALERT EVENTS AND NOTES REVIEWED + PAIN LEFT HAND - Current Medication List Current Medications: Active Medications Acetaminophen (Tylenol -) 650 mg PO Q6H PRN PRN Reason: PAIN Last Admin: 03/18/18 21:29 Dose: 650 mg Apixaban (Eliquis -) 5 mg PO BID [facility] Last Admin: 03/19/18 09:20 Dose: 5 mg Ascorbic Acid (Vitamin C -) 500 mg PO DAILY [facility] Last Admin: 03/19/18 09:20 Dose: 500 mg Cyanocobalamin (Vitamin B12 -) 1,000 mcg PO DAILY [facility] Last Admin: 03/19/18 09:20 Dose: 1,000 mcg Furosemide (Lasix -) 20 mg PO DAILY [facility] Last Admin: 03/19/18 09:20 Dose: 20 mg Gabapentin (Neurontin -) 300 mg PO TID [facility] Last Admin: 03/19/18 06:22 Dose: 300 mg Glipizide (Glucotrol -) 2.5 mg PO ACBK [facility] Last Admin: 03/19/18 06:22 Dose: 2.5 mg Clindamycin Phosphate (Cleocin 600 Mg Premix Ivpb -) 600 mg in 50 mls @ 100 mls /hr IVPB Q8H-IV [facility]; Protocol Insulin Aspart (Novolog Vial Sliding Scale -) 1 vial SQ ACHS [facility]; Protocol Last Admin: 03/19/18 11:17 Dose: Not Given Levothyroxine Sodium (Synthroid -) 75 mcg PO DAILY@0700 [facility] Last Admin: 03/19/18 06:00 Dose: 75 mcg Oxycodone HCl (Roxicodone -) 10 mg PO Q6H PRN PRN Reason: PAIN LEVEL 7 - 10 Last Admin: 03/19/18 10:59 Dose: 10 mg Valsartan (Diovan -) 160 mg PO DAILY [facility] Last Admin: 03/19/18 09:20 Dose: 160 mg - Objective Vital Signs: Vital Signs Temperature 97.3 F L 03/19/18 11:40 Pulse Rate 98 H 03/19/18 11:40 Respiratory Rate 20 03/19/18 11:40 Blood Pressure 125/63 03/19/18 11:40 O2 Sat by Pulse Oximetry (%) 95 03/19/18 08:44 Constitutional: Yes: Mild Distress Eyes: Yes: WNL HENT: Yes: WNL Neck: Yes: WNL Cardiovascular: Yes: WNL Respiratory: Yes: WNL Gastrointestinal: Yes: WNL Genitourinary: Yes: WNL Musculoskeletal: Yes: Joint Swelling Extremities: Yes: Erythema Edema: Yes Edema: LUE: 1+ Peripheral Pulses WNL: Yes Integumentary: Yes: Erythema Wound/Incision: Yes: Open to air Neurological: Yes: Pre-Existing Deficit ...Motor Strength: LLE, RLE Psychiatric: Yes: Other Labs: CBC, BMP 03/18/18 13:45 03/18/18 13:45 Problem List - Problems (1) Cellulitis Code(s): L03.90 - CELLULITIS, UNSPECIFIED (2) Left hand pain Code(s): M79.642 - PAIN IN LEFT HAND (3) Edema of hand Code(s): R60.0 - LOCALIZED EDEMA (4) Diabetes 1.5, managed as type 2 Code(s): E10.9 - TYPE 1 DIABETES MELLITUS WITHOUT COMPLICATIONS (5) History of total knee arthroplasty Code(s): Z96.659 - PRESENCE OF UNSPECIFIED ARTIFICIAL KNEE JOINT (6) Hypertension Code(s): I10 - ESSENTIAL (PRIMARY) HYPERTENSION Qualifiers: Hypertension type: essential hypertension Qualified Code(s): I10 - Essential (primary) hypertension (7) Obesity (BMI 30-39.9) Code(s): E66.9 - OBESITY, UNSPECIFIED (8) Osteoarthritis Code(s): M19.90 - UNSPECIFIED OSTEOARTHRITIS, UNSPECIFIED SITE Assessment/Plan IV CLEOCIN AWAIT CX ID CONSULT PAIN CONTROL DOPPLER NEGATIVE LUE DVT ORTHO EVAL DM CONTROL
[2018-03-19] MEDS: CLINDAMYCIN 600MG PREMIX IVPB 600 MG/50 ML BAG IVPB SCH ×2 (12:32→17:46)
--- NOTE | 2018-03-19 13:06 | PN ---
Progress Note (short form) - Note Progress Note: ID consult dictated imp/reccd 83 yo female lives at home developed pain in her left hand on Wed night, started on the palmar aspect of the hand, index finger the worst, traveled to her wrist as well swelling and pain, couldn't bend or use her hand/fingers no fevers no trauma never happened before no scratches no gout history reports 50% improvement since yesterday much less swelling, starting to be able to move the fingers, wrist a/p cellulitis of the left hand/left hand pain improving on clindamycin check esr/crp f/u xray check uric acid hand surgery eval ?rheumatology Problem List - Problems (1) Cellulitis Code(s): L03.90 - CELLULITIS, UNSPECIFIED (2) Left hand pain Code(s): M79.642 - PAIN IN LEFT HAND
--- NOTE | 2018-03-19 13:28 | CONS ---
DATE OF CONSULTATION: DATE OF DICTATION: 03/19/2018 INFECTIOUS DISEASE CONSULTATION REQUESTING PHYSICIAN: Kimberlyn Beth M.D. HISTORY OF PRESENT ILLNESS: This is an 83-year-old woman who has a history of atrial fibrillation, on Eliquis, who presents with pain and swelling of her left hand. This started on the plantar surface of her left hand on Wednesday night. The pain was most severe in her index finger. There was no trauma. There were no scratches of any sort. She had not had a manicure or exposure of anything to her hand. The pain traveled and the hand became swollen and it extended to her wrist and forearm, and she came to the emergency room. There is no history of any fever or chills. She has never had this happen before. She has no history of gout. PAST MEDICAL HISTORY: Notable for peripheral neuropathy, hypertension, atrial fibrillation, hypothyroidism, diabetes. PAST SURGICAL HISTORY: Negative. SOCIAL HISTORY: She is . She lives with her . ALLERGIES: There are no known drug allergies. MEDICATIONS: Include gabapentin, glipizide, Lasix, Synthroid, Eliquis, Diovan, vitamin C, calcium, vitamin B12, Percocet and vitamin E. REVIEW OF SYSTEMS: Unremarkable. She denies any fever or chills. She notes her hand is 50% improved since admission. PHYSICAL EXAMINATION: Vital Signs: She is afebrile; temperature is 97.3. Pulse is 98, blood pressure 125/63, respiratory rate 20. She is saturating 95%. HEENT: She is normocephalic. Eyes are anicteric. Neck: Supple. Lungs: Clear to auscultation. Heart: Regular rate and rhythm. Abdomen: Soft, nontender. Extremities: Notable for some mild swelling of her left hand, the left index finger and the left middle finger. She has difficulty with range of motion, her wrist as well. She is able to move it but it is somewhat uncomfortable. There is still some mild erythema of the area. DIAGNOSTIC STUDIES: Her labs are notable for a white count of 6.8, hemoglobin 11.3, platelets 142. BUN 25, creatinine 1. Urinalysis is negative. Blood cultures were not sent. X-ray of the hand is pending. Duplex is negative for DVT. SUMMARY: This is an 83-year-old woman with cellulitis of the left hand, improving on clindamycin. I would suspect at this time there is no point to culture since she had no fever and she has been started on clindamycin since last night. I will check a sedimentation rate and a CRP. Will follow up the x-ray of her hand. Will check a uric acid. Hand Surgery evaluation is pending. Could give consideration to evaluation as well, if needed. ANDIE BASURTO M.D. [id number]
[2018-03-19] MEDS: LACTOBACILLUS ACIDOPHILUS 1 TABLET PO SCH (13:57)
--- NOTE | 2018-03-19 16:43 | EKG ---
Test Reason : Blood Pressure : / mmHG Vent. Rate : 087 BPM Atrial Rate : 113 BPM P-R Int : 000 ms QRS Dur : 082 ms QT Int : 338 ms P-R-T Axes : 000 065 026 degrees QTc Int : 406 ms POOR DATA QUALITY, INTERPRETATION MAY BE ADVERSELY AFFECTED ATRIAL FIBRILLATION LOW VOLTAGE QRS CANNOT RULE OUT ANTERIOR INFARCT , AGE UNDETERMINED ABNORMAL ECG WHEN COMPARED WITH ECG OF 03-AUG-2016 10:21, NO SIGNIFICANT CHANGE WAS FOUND Confirmed by Perla Baeza ([id number]) on 03/19/2018 4:43:03 PM Referred By: Confirmed By:Perla Baeza
[2018-03-19] MEDS: ACETAMINOPHEN 325 MG TABLET (FP) PO PRN (21:24)
[2018-03-20] MEDS: CLINDAMYCIN 600MG PREMIX IVPB 600 MG/50 ML BAG IVPB SCH ×3 (02:50→17:31)
[2018-03-20] MEDS: LEVOTHYROXINE NA 75 MCG TABLET (FP) PO SCH (06:23)
[2018-03-20] MEDS: glipiZIDE 5 MG TABLET (FP) PO SCH (06:23)
[2018-03-20] MEDS: GABAPENTIN 300 MG CAPSULE (FP) PO SCH ×3 (06:24→21:50)
[2018-03-20] MEDS: INSULIN SLIDING SCALE (NOVOLOG) 1 VIAL SQ SCH ×4 (06:24→21:50)
[2018-03-20 07:34] LABS: HEMATOCRIT 29.4 % (32.4-45.2); HEMOGLOBIN 9.7 GM/dL (10.7-15.3); MCH 29.9 pg (25.7-33.7); MCHC 32.8 g/dl (32.0-36.0); MEAN PLT VOLUME 9.8 fl (7.5-11.1); PLATELET COUNT 127 K/MM3 (134-434); RBC 3.23 M/mm3 (3.60-5.2); RDW 15.2 % (11.6-15.6); WHITE BLOOD COUNT 3.3 K/mm3 (4.0-10.0)
[2018-03-20 08:48] LABS: ANION GAP 7 MMOL/L (8-16); BLOOD UREA NITROGEN 24 mg/dL (7-18); CALCIUM 8.5 mg/dL (8.5-10.1); CHLORIDE 104 mmol/L (98-107); CO2 30 mmol/L (21-32); CREATININE 1.1 mg/dL (0.55-1.3); GLUCOSE,RANDOM 103 mg/dL (74-106); POTASSIUM 3.9 mmol/L (3.5-5.1); SODIUM 142 mmol/L (136-145); URIC ACID 9.1 mg/dL (2.6-7.2)
--- NOTE | 2018-03-20 09:15 | CONSULT ---
Consult Consult Specialty:: hand surgery Reason for Consultation:: left hand pain/swelling - History of Present Illness History of Present Illness: 83F c/o left hand pain and swelling which began a few days ago. She came to the ER 2 days ago and states the hand looked like a 'balloon' because of the swelling. She was started on IV antibiotics. She denies any fevers or chills. The hand is feeling a lot better today. 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 Cardio/Vascular: Yes: HTN Endocrine: Yes: Diabetes Mellitus, Hypothyroidism - Past Surgical History Past Surgical History: Yes: None - Alcohol/Substance Use Hx Alcohol Use: No History of Substance Use: reports: None - Smoking History Smoking history: Never smoked Have you smoked in the past 12 months: No Aproximately how many cigarettes per day: 0 If you are a former smoker, when did you quit?: MORE THAN 20 yrs ago - Social History ADL: Independent Home Medications - Allergies Allergies/Adverse Reactions: Allergies Allergy/AdvReac Type Severity Reaction Status Date / Time No Known Drug Allergies Allergy Verified 03/18/18 12:27 - Home Medications Home Medications: Ambulatory Orders Gabapentin 300 mg PO TID 04/18/13 Glipizide [Glipizide ER] 2.5 mg PO DAILY 04/18/13 Furosemide [Lasix -] 20 mg PO DAILY 08/03/16 Levothyroxine Sodium [Synthroid] 75 mcg PO DAILY 08/03/16 Apixaban [Eliquis -] 5 mg PO BID tablet 08/06/16 Valsartan [Diovan] 160 mg PO DAILY tablet 08/06/16 Ascorbic Acid [Vitamin C] 500 mg PO DAILY 03/18/18 Calcium/D3/Mag Ox/Tech Brazer Tester/Niels/Zn [Caltrate+D3 Plus Mineral Minis] 1 each PO DAILY 03/18/18 Cyanocobalamin [Vitamin B12 -] 1,000 mcg PO DAILY 03/18/18 Oxycodone HCl/Acetaminophen [Percocet 10-325 mg Tablet] 1 each PO QID 03/18/18 Vitamin E 400 unit PO BID 03/18/18 Review of Systems - Review of Systems Constitutional: reports: No Symptoms Eyes: reports: No Symptoms HENT: reports: No Symptoms Neck: reports: No Symptoms Cardiovascular: reports: No Symptoms Respiratory: reports: No Symptoms Gastrointestinal: reports: No Symptoms Genitourinary: reports: No Symptoms Breasts: reports: No Symptoms Reported Musculoskeletal: reports: Extremity Pain Integumentary: reports: Erythema Neurological: reports: No Symptoms Endocrine: reports: No Symptoms Hematology/Lymphatic: reports: No Symptoms Psychiatric: reports: No Symptoms Physical Exam Vital Signs: Vital Signs Temperature 98.0 F 03/20/18 06:35 Pulse Rate 90 03/20/18 06:35 Respiratory Rate 20 03/20/18 06:35 Blood Pressure 120/60 03/20/18 06:35 O2 Sat by Pulse Oximetry (%) 96 03/19/18 20:44 Musculoskeletal: Yes: Other (Left hand: Trace edema of the hand and fingers. No erythema. No ecchyomsis. No evidence of flexor tenosynovitis. Mild diffuse tenderness along the digits. ROM of fingers in approx 50%. Well perfused. Sensation intact. Flexor and extensor tendons intact.) Labs: CBC, BMP 03/20/18 07:00 03/20/18 07:00 Imaging - Results X-ray: Report Reviewed, Image Reviewed (Left hand: Diffuse arthrosis, no fx or dislocation.) Assessment/Plan # Left hand cellulitis -No surgical intervention indicated -ABX per ID -Elevation -Follow up as outpatient as needed.
[2018-03-20] MEDS: APIXABAN 5 MG TABLET PO SCH ×2 (09:48→21:50)
[2018-03-20] MEDS: VALSARTAN 160 MG TABLET (UD) PO SCH (09:48)
[2018-03-20] MEDS: FUROSEMIDE 20 MG TABLET (FP) PO SCH ×2 (09:48→10:04)
[2018-03-20] MEDS: ASCORBIC ACID 500 MG TABLET (FP) PO SCH (09:49)
[2018-03-20] MEDS: CYANOCOBALAMIN 1,000 MCG TABLET (FP) PO SCH (09:49)
[2018-03-20] MEDS: LACTOBACILLUS ACIDOPHILUS 1 TABLET PO SCH (09:49)
[2018-03-20] MEDS ORDERED: INSULIN (NOVOLOG) ASPART 100 UNITS/ML 10ML VIAL ONE ×2 (10:21→21:16)
--- NOTE | 2018-03-20 10:21 | DS ---
Physical Examination Vital Signs: Vital Signs Temperature 98.0 F 03/20/18 06:35 Pulse Rate 90 03/20/18 06:35 Respiratory Rate 20 03/20/18 06:35 Blood Pressure 120/60 03/20/18 06:35 O2 Sat by Pulse Oximetry (%) 96 03/19/18 20:44 Findings/Remarks: FEELING BETTER NO EVENTS OVERNIGHT SEEN BY ORTHOPEDICS AND CLEARED FOR DISCHARGE HOME Constitutional: Yes: No Distress Eyes: Yes: WNL HENT: Yes: WNL Neck: Yes: WNL Cardiovascular: Yes: Pulse Irregular Respiratory: Yes: WNL Gastrointestinal: Yes: WNL Renal/: Yes: WNL Musculoskeletal: Yes: Muscle Pain, Muscle Weakness Extremities: Yes: Erythema Edema: No Peripheral Pulses WNL: Yes Integumentary: Yes: Erythema Wound/Incision: Yes: Clean/Dry, Open to air Neurological: Yes: Pre-Existing Deficit ...Motor Strength: LUE Psychiatric: Yes: WNL Labs: CBC, BMP 03/20/18 07:00 03/20/18 07:00 Discharge Summary Reason For Visit: EDEMA OF HAND Current Active Problems Cellulitis (Acute) Edema of hand (Acute) Left hand pain (Acute) Procedures: Principal: XRAYS Hospital Course: TREATED FOR CELLULITIS LEFT HAND IV ABX, ORTHOPEDIC WORKUP NEGATIVE Condition: Fair - Instructions Diet, Activity, Other Instructions: DIABETIC LOW SODIUM DIET Referrals: Kimberlyn Beth MD [Primary Care Provider] - Disposition: HOME - Home Medications Comprehensive Discharge Medication List: Ambulatory Orders Gabapentin 300 mg PO TID 04/18/13 Glipizide [Glipizide ER] 2.5 mg PO DAILY 04/18/13 Furosemide [Lasix -] 20 mg PO DAILY 08/03/16 Levothyroxine Sodium [Synthroid] 75 mcg PO DAILY 08/03/16 Apixaban [Eliquis -] 5 mg PO BID tablet 08/06/16 Valsartan [Diovan] 160 mg PO DAILY tablet 08/06/16 Ascorbic Acid [Vitamin C] 500 mg PO DAILY 03/18/18 Calcium/D3/Mag Ox/Respiratory Therapy Assistant/Niels/Zn [Caltrate+D3 Plus Mineral Minis] 1 each PO DAILY 03/18/18 Cyanocobalamin [Vitamin B12 -] 1,000 mcg PO DAILY 03/18/18 Oxycodone HCl/Acetaminophen [Percocet 10-325 mg Tablet] 1 each PO QID 03/18/18 Vitamin E 400 unit PO BID 03/18/18 Clindamycin [Cleocin -] 300 mg PO TID #21 capsule 03/20/18 Lactobacillus Acidophilus [Bacid -] 1 tab PO DAILY #30 tab 03/20/18
[2018-03-20] MEDS: oxyCODONE HCL 5 MG TABLET PO PRN ×2 (12:42→18:51)
[2018-03-20] MEDS ORDERED: CLINDAMYCIN 600MG PREMIX IVPB 600 MG/50 ML BAG IVPB ONE (14:00)
[2018-03-20] MEDS: ACETAMINOPHEN 325 MG TABLET (FP) PO PRN (15:25)
[2018-03-21] MEDS: CLINDAMYCIN 600MG PREMIX IVPB 600 MG/50 ML BAG IVPB SCH (02:03)
[2018-03-21] MEDS: GABAPENTIN 300 MG CAPSULE (FP) PO SCH (06:38)
[2018-03-21] MEDS: LEVOTHYROXINE NA 75 MCG TABLET (FP) PO SCH (06:39)
[2018-03-21] MEDS: INSULIN SLIDING SCALE (NOVOLOG) 1 VIAL SQ SCH (06:39)
[2018-03-21] MEDS: glipiZIDE 5 MG TABLET (FP) PO SCH (06:39)
[2018-03-21] MEDS: ASCORBIC ACID 500 MG TABLET (FP) PO SCH (09:12)
[2018-03-21] MEDS: APIXABAN 5 MG TABLET PO SCH (09:12)
[2018-03-21] MEDS: VALSARTAN 160 MG TABLET (UD) PO SCH (09:12)
[2018-03-21] MEDS: LACTOBACILLUS ACIDOPHILUS 1 TABLET PO SCH (09:12)
[2018-03-21] MEDS: FUROSEMIDE 20 MG TABLET (FP) PO SCH (09:12)
[2018-03-21] MEDS: CYANOCOBALAMIN 1,000 MCG TABLET (FP) PO SCH (09:19)
[2018-03-21 11:41] VITALS: BP 125/68; PULSE 102; TEMP 98
== END 2018-03-21 09:46 | disposition home or self-care (01) ==
LOC: JER 12:15 → INTOOBSV 14:52 → JERBED 14:52 → J6S 19:07
PROVIDERS: ADMIT Family Medicine; ATTEND Family Medicine
DX: L03.114 Cellulitis of left upper limb (principal); R22.32 Localized swelling, mass and lump, left upper limb; I11.0 Hypertensive heart disease with heart failure; I48.91 Unspecified atrial fibrillation; I50.9 Heart failure, unspecified; E78.5 Hyperlipidemia, unspecified; E11.9 Type 2 diabetes mellitus without complications; E03.9 Hypothyroidism, unspecified; G62.9 Polyneuropathy, unspecified; M19.90 Unspecified osteoarthritis, unspecified site; E66.9 Obesity, unspecified; Z68.41 Body mass index [BMI] 40.0-44.9, adult; Z99.81 Dependence on supplemental oxygen; Z79.01 Long term (current) use of anticoagulants; Z79.84 Long term (current) use of oral hypoglycemic drugs; Z90.710 Acquired absence of both cervix and uterus
CPT/HCPCS: 36415; 71045-TC-FY; 73130-TC-LT-FY; 80048; 80053; 81003; 81015; 82962; 83036; 83880; 84439; 84443; 84550; 85025; 85027; 85651; 86140; 93005; 93010; 93971; 96365; 96375; 99281-25; G0378; J0131

== ENCOUNTER → 2020-01-10 | Day surgery (SDC) | payer OTHER, BC | END | disposition home or self-care (01) | LOC: JRADIR 04:09 → EDSTATUS 11:00 | PROVIDERS: ATTEND Family Medicine | PROC: 02PY03Z Removal of Infusion Device from Great Vessel, Open Approach (ICD-10-PCS; principal; 2020-01-10) | DX: Z45.2 Encounter for adjustment and management of vascular access device (principal) | CPT/HCPCS: 36589 ==

== ENCOUNTER 2021-07-21 15:51 | Inpatient (IN) | payer OTHER, BC ==
[2021-07-21 16:27] VITALS: BMI 34.3
[2021-07-21 18:12] LABS: BASO % 0.8 % (0-2.0); EOS % 2.4 % (0-4.5); HEMATOCRIT 16.8 % (32.4-45.2); LYMPH % 5.9 % (8-40); MCH 24.6 pg (25.7-33.7); MCHC 31.2 g/dl (32.0-36.0); MEAN CELL VOLUME 78.8 fl (80-96); MEAN PLT VOLUME 9.4 fl (7.5-11.1); MONO % 10.4 % (3.8-10.2); NEUT % 80.5 % (42.8-82.8); PLATELET COUNT 120 10^3/uL (134-434); RBC 2.13 M/mm3 (3.60-5.2); WHITE BLOOD COUNT 4.5 K/mm3 (4.0-10.0)
[2021-07-21 18:14] LABS: HEMOGLOBIN 5.2 GM/dL (10.7-15.3)
[2021-07-21 18:16] LABS: VENOUS BASE EXCESS 0.3 mmol/L (-2-2); VENOUS O2 SATURATION 99.1 % (70-80); VENOUS PCO2 51.8 mmHg (38-52); VENOUS PH 7.325 (7.310-7.410)
[2021-07-21 18:18] LABS: ACTIVATED PTT 38.6 SECONDS (25.2-36.5); INR 2.23 (0.83-1.09); PROTHROMBIN TIME (PATIENT) 25.9 SEC (9.7-13.0)
[2021-07-21 18:31] LABS: CALCIUM 8.5 mg/dL (8.5-10.1)
[2021-07-21 18:32] LABS: ALBUMIN 3.2 g/dl (3.4-5.0); BLOOD UREA NITROGEN 45.4 mg/dL (7-18); MAGNESIUM 2.5 mg/dL (1.8-2.4)
[2021-07-21 18:38] LABS: BILIRUBIN,TOTAL 0.4 mg/dL (0.2-1); TOT PROT 5.7 g/dl (6.4-8.2)
[2021-07-21 18:41] LABS: N-TERMINAL BNP 2049.3 pg/ml (5-450)
[2021-07-22] MEDS ORDERED: FUROSEMIDE 40 MG/4 ML INJECTABLE VIAL IVPUSH ONE ×2 (05:14→15:31)
[2021-07-22] MEDS ORDERED: FUROSEMIDE 40 MG/4 ML INJECTABLE VIAL ONE (06:00)
[2021-07-22 08:29] LABS: BASO % 0.8 % (0-2.0); EOS % 5.8 % (0-4.5); HEMATOCRIT 21.5 % (32.4-45.2); HEMOGLOBIN 7.1 GM/dL (10.7-15.3); LYMPH % 8.7 % (8-40); MCH 26.3 pg (25.7-33.7); MEAN CELL VOLUME 79.8 fl (80-96); MEAN PLT VOLUME 9.2 fl (7.5-11.1); MONO % 12.6 % (3.8-10.2); NEUT % 72.1 % (42.8-82.8); PLATELET COUNT 112 10^3/uL (134-434); RDW 16.6 % (11.6-15.6); WHITE BLOOD COUNT 5.2 K/mm3 (4.0-10.0)
[2021-07-22 08:50] LABS: BLOOD UREA NITROGEN 47.1 mg/dL (7-18)
[2021-07-22 08:51] LABS: CALCIUM 8.4 mg/dL (8.5-10.1)
[2021-07-22 08:52] LABS: ALBUMIN 3.1 g/dl (3.4-5.0)
[2021-07-22 08:54] LABS: CREATININE 1.9 mg/dL (0.55-1.3)
[2021-07-22 08:55] LABS: TOT PROT 5.4 g/dl (6.4-8.2)
[2021-07-22] MEDS: GABAPENTIN 300 MG CAPSULE PO SCH ×2 (14:25→22:07)
[2021-07-22] MEDS: INSULIN SLIDING SCALE (NOVOLOG) 1 VIAL SQ SCH ×2 (16:52→22:04)
[2021-07-23] MEDS: LEVOTHYROXINE NA 75 MCG TABLET (FP) PO SCH (06:28)
[2021-07-23] MEDS: FUROSEMIDE 40 MG/4 ML INJECTABLE VIAL IVPUSH SCH ×2 (06:28→14:23)
[2021-07-23] MEDS: GABAPENTIN 300 MG CAPSULE PO SCH ×3 (06:28→21:18)
[2021-07-23] MEDS: INSULIN SLIDING SCALE (NOVOLOG) 1 VIAL SQ SCH ×4 (06:35→21:18)
[2021-07-23 07:45] LABS: BASO % 0.6 % (0-2.0); EOS % 5.1 % (0-4.5); HEMATOCRIT 24.2 % (32.4-45.2); HEMOGLOBIN 7.8 GM/dL (10.7-15.3); LYMPH % 8.9 % (8-40); MCHC 32.3 g/dl (32.0-36.0); MEAN CELL VOLUME 80.5 fl (80-96); MEAN PLT VOLUME 8.8 fl (7.5-11.1); MONO % 12.6 % (3.8-10.2); NEUT % 72.8 % (42.8-82.8); PLATELET COUNT 116 10^3/uL (134-434); RBC 3.01 M/mm3 (3.60-5.2); RDW 16.5 % (11.6-15.6); WHITE BLOOD COUNT 5.1 K/mm3 (4.0-10.0)
[2021-07-23 07:59] LABS: CALCIUM 8.6 mg/dL (8.5-10.1)
[2021-07-23 08:00] LABS: ALBUMIN 3.2 g/dl (3.4-5.0); BLOOD UREA NITROGEN 45.2 mg/dL (7-18)
[2021-07-23 08:02] LABS: CREATININE 1.8 mg/dL (0.55-1.3)
[2021-07-23 08:03] LABS: BILIRUBIN,TOTAL 1.2 mg/dL (0.2-1); TOT PROT 5.4 g/dl (6.4-8.2)
[2021-07-23] MEDS ORDERED: IRON SUCROSE INJECTION 200 MG in SODIUM CHLORIDE 90 ML IVPB ONE (14:10)
[2021-07-23] MEDS ORDERED: oxyCODONE HCL 5 MG TABLET PO ONE (20:58)
[2021-07-23] MEDS: ACETAMINOPHEN 1000 MG/100 ML BAG IVPB PRN (21:18)
[2021-07-24] MEDS: GABAPENTIN 300 MG CAPSULE PO SCH ×3 (06:16→22:26)
[2021-07-24] MEDS: FUROSEMIDE 40 MG/4 ML INJECTABLE VIAL IVPUSH SCH ×2 (06:16→14:38)
[2021-07-24] MEDS: INSULIN SLIDING SCALE (NOVOLOG) 1 VIAL SQ SCH ×4 (06:16→22:26)
[2021-07-24] MEDS: LEVOTHYROXINE NA 75 MCG TABLET (FP) PO SCH (06:18)
[2021-07-24 09:36] LABS: ALBUMIN 3.2 g/dl (3.4-5.0); CALCIUM 8.7 mg/dL (8.5-10.1)
[2021-07-24 09:37] LABS: BLOOD UREA NITROGEN 42.4 mg/dL (7-18)
[2021-07-24 09:39] LABS: CREATININE 1.6 mg/dL (0.55-1.3)
[2021-07-24 09:41] LABS: BILIRUBIN,TOTAL 0.9 mg/dL (0.2-1); TOT PROT 5.4 g/dl (6.4-8.2)
[2021-07-24] MEDS: ACETAMINOPHEN 1000 MG/100 ML BAG IVPB PRN (11:20)
[2021-07-24] MEDS: oxyCODONE HCL 5 MG TABLET PO PRN (23:01)
[2021-07-25] MEDS: LEVOTHYROXINE NA 75 MCG TABLET (FP) PO SCH (06:34)
[2021-07-25] MEDS: GABAPENTIN 300 MG CAPSULE PO SCH ×3 (06:35→21:04)
[2021-07-25] MEDS: FUROSEMIDE 40 MG/4 ML INJECTABLE VIAL IVPUSH SCH ×2 (06:35→14:40)
[2021-07-25] MEDS: INSULIN SLIDING SCALE (NOVOLOG) 1 VIAL SQ SCH ×4 (06:43→21:04)
[2021-07-25 09:04] LABS: BASO % 1.2 % (0-2.0); EOS % 7.2 % (0-4.5); HEMATOCRIT 23.9 % (32.4-45.2); HEMOGLOBIN 7.7 GM/dL (10.7-15.3); LYMPH % 7.8 % (8-40); MCH 26.4 pg (25.7-33.7); MCHC 32.2 g/dl (32.0-36.0); MEAN CELL VOLUME 82.2 fl (80-96); MEAN PLT VOLUME 8.8 fl (7.5-11.1); MONO % 12.3 % (3.8-10.2); NEUT % 71.5 % (42.8-82.8); PLATELET COUNT 113 10^3/uL (134-434); RBC 2.91 M/mm3 (3.60-5.2); RDW 17.8 % (11.6-15.6); WHITE BLOOD COUNT 4.1 K/mm3 (4.0-10.0)
[2021-07-25 09:18] LABS: CALCIUM 8.7 mg/dL (8.5-10.1)
[2021-07-25 09:19] LABS: ALBUMIN 3.3 g/dl (3.4-5.0); BLOOD UREA NITROGEN 39.4 mg/dL (7-18)
[2021-07-25 09:22] LABS: CREATININE 1.5 mg/dL (0.55-1.3)
[2021-07-25 09:24] LABS: BILIRUBIN,TOTAL 0.8 mg/dL (0.2-1); TOT PROT 5.5 g/dl (6.4-8.2)
[2021-07-25] MEDS ORDERED: SENNOSIDES 8.6MG TABLET (FP) PO PRN (12:53)
[2021-07-25] MEDS ORDERED: DOCUSATE SODIUM 100 MG CAPSULE (FP) PO PRN (12:53)
[2021-07-25] MEDS: FERROUS SO4 325 MG TABLET (FP) PO SCH (14:30)
[2021-07-25] MEDS: oxyCODONE HCL 5 MG TABLET PO PRN (21:40)
[2021-07-26] MEDS: FUROSEMIDE 40 MG/4 ML INJECTABLE VIAL IVPUSH SCH ×2 (05:44→14:49)
[2021-07-26] MEDS: GABAPENTIN 300 MG CAPSULE PO SCH ×3 (05:45→21:35)
[2021-07-26] MEDS: INSULIN SLIDING SCALE (NOVOLOG) 1 VIAL SQ SCH ×4 (06:11→21:35)
[2021-07-26] MEDS: LEVOTHYROXINE NA 75 MCG TABLET (FP) PO SCH (06:11)
[2021-07-26] MEDS: oxyCODONE HCL 5 MG TABLET PO PRN ×2 (08:17→14:50)
[2021-07-26 09:03] LABS: CALCIUM 8.4 mg/dL (8.5-10.1)
[2021-07-26 09:04] LABS: BLOOD UREA NITROGEN 35.9 mg/dL (7-18); MAGNESIUM 2.2 mg/dL (1.8-2.4)
[2021-07-26 09:07] LABS: CREATININE 1.4 mg/dL (0.55-1.3); PHOSPHOROUS 3.7 mg/dL (2.5-4.9)
[2021-07-26] MEDS: FERROUS SO4 325 MG TABLET (FP) PO SCH (10:13)
[2021-07-26] MEDS ORDERED: oxyCODONE HCL 5 MG TABLET PO ONE (19:11)
[2021-07-27] MEDS: oxyCODONE HCL 5 MG TABLET PO PRN ×3 (02:56→19:15)
[2021-07-27] MEDS: FUROSEMIDE 40 MG/4 ML INJECTABLE VIAL IVPUSH SCH ×2 (06:07→14:20)
[2021-07-27] MEDS: GABAPENTIN 300 MG CAPSULE PO SCH ×3 (06:07→21:52)
[2021-07-27] MEDS: LEVOTHYROXINE NA 75 MCG TABLET (FP) PO SCH (06:07)
[2021-07-27] MEDS: INSULIN SLIDING SCALE (NOVOLOG) 1 VIAL SQ SCH ×4 (06:07→21:52)
[2021-07-27] MEDS ORDERED: ACETAMINOPHEN 1000 MG/100 ML BAG IVPB ONE (06:58)
[2021-07-27] MEDS ORDERED: oxyCODONE HCL 5 MG TABLET PO PRN (10:25)
[2021-07-27] MEDS: FERROUS SO4 325 MG TABLET (FP) PO SCH (10:36)
[2021-07-27 17:34] LABS: BASO % 0.7 % (0-2.0); EOS % 6.1 % (0-4.5); HEMATOCRIT 27.2 % (32.4-45.2); HEMOGLOBIN 8.5 GM/dL (10.7-15.3); LYMPH % 12.3 % (8-40); MCH 26.2 pg (25.7-33.7); MCHC 31.3 g/dl (32.0-36.0); MEAN CELL VOLUME 83.8 fl (80-96); MONO % 13.2 % (3.8-10.2); NEUT % 67.7 % (42.8-82.8); PLATELET COUNT 96 10^3/uL (134-434); RBC 3.25 M/mm3 (3.60-5.2); RDW 20.3 % (11.6-15.6); WHITE BLOOD COUNT 4.1 K/mm3 (4.0-10.0)
[2021-07-28] MEDS: oxyCODONE HCL 5 MG TABLET PO PRN ×3 (02:10→20:21)
[2021-07-28] MEDS: GABAPENTIN 300 MG CAPSULE PO SCH ×3 (06:06→22:08)
[2021-07-28] MEDS: FUROSEMIDE 40 MG/4 ML INJECTABLE VIAL IVPUSH SCH (06:06)
[2021-07-28] MEDS: INSULIN SLIDING SCALE (NOVOLOG) 1 VIAL SQ SCH ×4 (06:06→22:08)
[2021-07-28] MEDS: LEVOTHYROXINE NA 75 MCG TABLET (FP) PO SCH (06:06)
[2021-07-28 08:53] LABS: BASO % 0.8 % (0-2.0); EOS % 5.2 % (0-4.5); HEMOGLOBIN 8.1 GM/dL (10.7-15.3); LYMPH % 11.2 % (8-40); MCH 26.7 pg (25.7-33.7); MCHC 31.4 g/dl (32.0-36.0); MEAN CELL VOLUME 85.1 fl (80-96); MEAN PLT VOLUME 8.5 fl (7.5-11.1); MONO % 10.9 % (3.8-10.2); NEUT % 71.9 % (42.8-82.8); PLATELET COUNT 85 10^3/uL (134-434); RBC 3.05 M/mm3 (3.60-5.2); WHITE BLOOD COUNT 3.8 K/mm3 (4.0-10.0)
[2021-07-28 09:02] LABS: INR 1.29 (0.83-1.09); PROTHROMBIN TIME (PATIENT) 14.9 SEC (9.7-13.0)
[2021-07-28 09:16] LABS: CALCIUM 8.5 mg/dL (8.5-10.1)
[2021-07-28 09:17] LABS: BLOOD UREA NITROGEN 30.5 mg/dL (7-18)
[2021-07-28 09:20] LABS: CREATININE 1.3 mg/dL (0.55-1.3)
[2021-07-28 09:22] LABS: BILIRUBIN,TOTAL 0.8 mg/dL (0.2-1); TOT PROT 5.4 g/dl (6.4-8.2)
[2021-07-28 10:02] LABS: ANISOCYTOSIS 1+; MACROCYTOSIS 0
[2021-07-28] MEDS: FUROSEMIDE 40 MG TABLET (FP) PO SCH (10:02)
[2021-07-28] MEDS: POTASSIUM CHLORIDE TABS 10 MEQ TABLET.ER (FP) PO SCH (10:03)
[2021-07-28] MEDS: FERROUS SO4 325 MG TABLET (FP) PO SCH (10:03)
[2021-07-28] MEDS: APIXABAN 2.5 MG TABLET PO SCH ×2 (10:03→22:08)
[2021-07-29] MEDS: oxyCODONE HCL 5 MG TABLET PO PRN ×3 (02:30→15:20)
[2021-07-29] MEDS: INSULIN SLIDING SCALE (NOVOLOG) 1 VIAL SQ SCH ×3 (06:25→17:11)
[2021-07-29] MEDS: LEVOTHYROXINE NA 75 MCG TABLET (FP) PO SCH (06:26)
[2021-07-29] MEDS: GABAPENTIN 300 MG CAPSULE PO SCH ×2 (06:26→14:27)
[2021-07-29] MEDS: APIXABAN 2.5 MG TABLET PO SCH (09:01)
[2021-07-29] MEDS: POTASSIUM CHLORIDE TABS 10 MEQ TABLET.ER (FP) PO SCH (09:01)
[2021-07-29] MEDS: FUROSEMIDE 40 MG TABLET (FP) PO SCH (09:01)
[2021-07-29] MEDS: FERROUS SO4 325 MG TABLET (FP) PO SCH (09:01)
[2021-07-29] MEDS ORDERED: PANTOPRAZOLE 20 MG TABLET PO SCH (10:00)
[2021-07-29] MEDS ORDERED: MULTIVITAMINS (DAILY MVI) TABLET (FP) PO SCH (10:00)
[2021-07-29] MEDS ORDERED: ZINC SULFATE 220 MG CAPSULE (FP) PO SCH (10:00)
[2021-07-29] MEDS ORDERED: ASCORBIC ACID 500 MG TABLET (FP) PO SCH (10:00)
[2021-07-29 11:47] VITALS: TEMP 98.1
[2021-07-29 15:53] LABS: HEMATOCRIT 27.1 % (32.4-45.2); HEMOGLOBIN 8.4 GM/dL (10.7-15.3); MCH 26.3 pg (25.7-33.7); MCHC 31.1 g/dl (32.0-36.0); MEAN CELL VOLUME 84.8 fl (80-96); MEAN PLT VOLUME 8.3 fl (7.5-11.1); PLATELET COUNT 90 10^3/uL (134-434); RBC 3.19 M/mm3 (3.60-5.2); RDW 22.2 % (11.6-15.6); WHITE BLOOD COUNT 3.6 K/mm3 (4.0-10.0)
[2021-07-29 18:13] VITALS: BP 111/57; PULSE 90
[2021-07-29] MEDS ORDERED: POLYETHYLENE GLYCOL (HEALTHYLAX) 3350 17 GM PACKET PO SCH (22:00)
== END 2021-07-29 20:47 | disposition home health service (06) | DRG 811 ==
LOC: JER 15:51 → JERBED 20:07 → J4S 07-22 13:44
PROVIDERS: ADMIT Internal Medicine; ATTEND Family Medicine
PROC: 30233N1 Transfusion of Nonautologous Red Blood Cells into Peripheral Vein, Percutaneous Approach (ICD-10-PCS; principal; 2021-07-21)
DX: D50.9 Iron deficiency anemia, unspecified (principal); I50.33 Acute on chronic diastolic (congestive) heart failure; N17.9 Acute kidney failure, unspecified; E87.1 Hypo-osmolality and hyponatremia; I48.19 Other persistent atrial fibrillation; I11.0 Hypertensive heart disease with heart failure; E11.9 Type 2 diabetes mellitus without complications; E03.9 Hypothyroidism, unspecified; D69.6 Thrombocytopenia, unspecified
CPT/HCPCS: 36415; 36430; 71045-TC-FY; 80048; 80053; 80162; 82272; 82607; 82728; 82747; 82803; 82962; 83036; 83540; 83550; 83735; 83880; 84100; 84439; 84443; 84484; 85014; 85025; 85027; 85045; 85610; 85730; 86850; 86900; 86901; 86922; 93005; 93010; 93306-TC; 97116-GP; 97161-GP; 99285-25; C9803-CS; J1756; P9058; U0003; U0005

== ENCOUNTER 2021-10-27 11:17 | Inpatient (IN) | payer OTHER, BC ==
[2021-10-27] MEDS ORDERED: LACTATED RINGERS SOLUTION 1000 ML INFUS.BAG IV ONE ×2 (12:28→12:45)
[2021-10-27 12:48] LABS: VENOUS BASE EXCESS 3.6 mmol/L (-2-2); VENOUS O2 SATURATION 60.1 % (70-80); VENOUS PCO2 57.3 mmHg (38-52); VENOUS PH 7.331 (7.310-7.410)
[2021-10-27 13:00] LABS: BASO % 0.3 % (0-2.0); EOS % 3.1 % (0-4.5); HEMATOCRIT 13.5 % (32.4-45.2); LYMPH % 2.6 % (8-40); MCHC 29.9 g/dl (32.0-36.0); MEAN CELL VOLUME 70.3 fl (80-96); MEAN PLT VOLUME 9.2 fl (7.5-11.1); PLATELET COUNT 98 10^3/uL (134-434); RBC 1.91 M/mm3 (3.60-5.2); RDW 19.9 % (11.6-15.6); WHITE BLOOD COUNT 3.9 K/mm3 (4.0-10.0)
[2021-10-27] MEDS ORDERED: DOPAMINE 400 MG/D5W - 400,000 MCG/250 ML INFUS.BAG IVPB SCH (13:00)
[2021-10-27 13:06] LABS: INR 1.93 (0.83-1.09); PROTHROMBIN TIME (PATIENT) 22.3 SEC (9.7-13.0)
[2021-10-27] MEDS ORDERED: DOPAMINE 400 MG/D5W - 400,000 MCG/250 ML INFUS.BAG IVPB ONE (13:06)
[2021-10-27 13:08] LABS: ACTIVATED PTT 36.1 SECONDS (25.2-36.5)
[2021-10-27 13:18] LABS: ALBUMIN 3.1 g/dl (3.4-5.0); BLOOD UREA NITROGEN 78.2 mg/dL (7-18); CALCIUM 8.8 mg/dL (8.5-10.1)
[2021-10-27 13:22] LABS: CREATININE 2.3 mg/dL (0.55-1.3)
[2021-10-27 13:23] LABS: BILIRUBIN,TOTAL 0.6 mg/dL (0.2-1); TOT PROT 5.2 g/dl (6.4-8.2)
[2021-10-27 13:26] LABS: N-TERMINAL BNP 2073.6 pg/ml (5-450)
[2021-10-27] MEDS ORDERED: NOREPINEPHRINE BITARTRATE 4 MG/4 ML ML IV ONE (14:08)
[2021-10-27] MEDS ORDERED: NOREPINEPHRINE D5W PREMIX 16,000 MCG/500 ML BAG IVPB SCH (14:45)
[2021-10-27 15:32] LABS: ANISOCYTOSIS 2+; MACROCYTOSIS 0; OVALOCYTE 2+
[2021-10-27] MEDS ORDERED: FUROSEMIDE 40 MG/4 ML INJECTABLE VIAL IVPUSH ONE ×3 (18:36→22:03)
[2021-10-27] MEDS ORDERED: PANTOPRAZOLE SODIUM 40 MG VIAL IVPUSH SCH (19:15)
[2021-10-27 21:17] LABS: HEMATOCRIT 14.5 % (32.4-45.2); MCH 21.8 pg (25.7-33.7); MCHC 30.3 g/dl (32.0-36.0); MEAN PLT VOLUME 8.9 fl (7.5-11.1); PLATELET COUNT 101 10^3/uL (134-434); RBC 2.01 M/mm3 (3.60-5.2); RDW 20.7 % (11.6-15.6); WHITE BLOOD COUNT 4.8 K/mm3 (4.0-10.0)
[2021-10-27 21:20] LABS: HEMOGLOBIN 4.4 GM/dL (10.7-15.3)
[2021-10-27] MEDS: CHLORHEXIDINE GLUCONATE 4% CLEANSER FOR DECOLONIZATION TP SCH (21:22)
[2021-10-27 22:50] VITALS: BMI 44.6
[2021-10-27] MEDS: MUPIROCIN 2% TOPICAL OINTMENT FOR DECOLONIZATION NS SCH (23:24)
[2021-10-28] MEDS: NOREPINEPHRINE D5W PREMIX 16,000 MCG/500 ML BAG IVPB SCH (01:25)
[2021-10-28] MEDS ORDERED: FUROSEMIDE 40 MG/4 ML INJECTABLE VIAL IVPUSH ONE ×2 (06:29→10:38)
[2021-10-28 06:54] LABS: HEMATOCRIT 20.4 % (32.4-45.2); MCH 24.2 pg (25.7-33.7); MCHC 31.9 g/dl (32.0-36.0); MEAN CELL VOLUME 75.8 fl (80-96); MEAN PLT VOLUME 8.8 fl (7.5-11.1); PLATELET COUNT 96 10^3/uL (134-434); RBC 2.69 M/mm3 (3.60-5.2); RDW 21.4 % (11.6-15.6); WHITE BLOOD COUNT 6.1 K/mm3 (4.0-10.0)
[2021-10-28 07:22] LABS: CALCIUM 8.6 mg/dL (8.5-10.1)
[2021-10-28 07:23] LABS: ALBUMIN 2.9 g/dl (3.4-5.0); BLOOD UREA NITROGEN 78.3 mg/dL (7-18); MAGNESIUM 2.5 mg/dL (1.8-2.4)
[2021-10-28 07:26] LABS: CREATININE 2.2 mg/dL (0.55-1.3); PHOSPHOROUS 4.1 mg/dL (2.5-4.9)
[2021-10-28 07:27] LABS: BILIRUBIN,TOTAL 2.4 mg/dL (0.2-1); HEMOGLOBIN 6.5 GM/dL (10.7-15.3)
[2021-10-28 07:28] LABS: TOT PROT 4.8 g/dl (6.4-8.2)
[2021-10-28 08:29] LABS: RETICULOCYTES 3.17 % (0.5-1.5)
[2021-10-28 09:11] LABS: EPI CELLS 4 /uL (0-25.1); HYALINE CASTS 0 /uL (0-3.1); URINE APPEARANCE CLEAR; URINE BACTERIA 638 /uL (0-1359); URINE BILIRUBIN NEGATIVE (NEGATIVE); URINE COLOR YELLOW; URINE GLUCOSE (UA) NEGATIVE (NEGATIVE); URINE KETONE NEGATIVE (NEGATIVE); URINE LEUK ESTERASE 2+ (NEGATIVE); URINE NITRITE NEGATIVE (NEGATIVE); URINE PROTEIN NEGATIVE (NEGATIVE); URINE RBC 9 /uL (0-23.9); URINE UROBILINOGEN 0.2 mg/dL (0.2-1.0); URINE WBC 121 /uL (0-25.8)
[2021-10-28] MEDS: PANTOPRAZOLE SODIUM 40 MG VIAL IVPUSH SCH ×2 (09:45→21:34)
[2021-10-28] MEDS: MUPIROCIN 2% TOPICAL OINTMENT FOR DECOLONIZATION NS SCH ×2 (09:46→21:36)
[2021-10-28] MEDS ORDERED: PHYTONADIONE 5 MG TABLET PO ONE (10:34)
[2021-10-28] MEDS ORDERED: CALCIUM GLUCONATE 10% - 1,000 MG/10 ML VIAL IVPB ONE (10:44)
[2021-10-28] MEDS: LEVOTHYROXINE SODIUM 100 MCG VIAL IVPUSH SCH (10:48)
[2021-10-28] MEDS ORDERED: PREGABALIN 50 MG CAPSULE PO SCH (14:00)
[2021-10-28 14:35] LABS: HEMATOCRIT 24.2 % (32.4-45.2); HEMOGLOBIN 7.8 GM/dL (10.7-15.3); MCH 24.6 pg (25.7-33.7); MCHC 32.1 g/dl (32.0-36.0); MEAN CELL VOLUME 76.6 fl (80-96); MEAN PLT VOLUME 9.6 fl (7.5-11.1); PLATELET COUNT 92 10^3/uL (134-434); RBC 3.16 M/mm3 (3.60-5.2); RDW 21.2 % (11.6-15.6); WHITE BLOOD COUNT 6.8 K/mm3 (4.0-10.0)
[2021-10-28 14:42] LABS: INR 1.48 (0.83-1.09); PROTHROMBIN TIME (PATIENT) 17.1 SEC (9.7-13.0)
[2021-10-28 14:45] LABS: ACTIVATED PTT 35.7 SECONDS (25.2-36.5)
[2021-10-28 14:57] LABS: ALBUMIN 2.9 g/dl (3.4-5.0); BLOOD UREA NITROGEN 76.7 mg/dL (7-18); CALCIUM 8.6 mg/dL (8.5-10.1)
[2021-10-28 15:02] LABS: BILIRUBIN,TOTAL 2.3 mg/dL (0.2-1); TOT PROT 5.1 g/dl (6.4-8.2)
[2021-10-28] MEDS: DEXMEDETOMIDINE PREMIX 400 MCG/100 ML BAG IVPB SCH (21:34)
[2021-10-28] MEDS: CHLORHEXIDINE GLUCONATE 4% CLEANSER FOR DECOLONIZATION TP SCH (21:36)
[2021-10-29 02:03] LABS: HEMATOCRIT 26.3 % (32.4-45.2); HEMOGLOBIN 8.5 GM/dL (10.7-15.3); MCH 25.4 pg (25.7-33.7); MCHC 32.3 g/dl (32.0-36.0); MEAN CELL VOLUME 78.9 fl (80-96); MEAN PLT VOLUME 9.5 fl (7.5-11.1); PLATELET COUNT 78 10^3/uL (134-434); RBC 3.34 M/mm3 (3.60-5.2); RDW 20.2 % (11.6-15.6); WHITE BLOOD COUNT 9.4 K/mm3 (4.0-10.0)
[2021-10-29 02:11] LABS: INR 1.52 (0.83-1.09); PROTHROMBIN TIME (PATIENT) 17.5 SEC (9.7-13.0)
[2021-10-29 02:23] LABS: CALCIUM 8.4 mg/dL (8.5-10.1)
[2021-10-29 02:24] LABS: ALBUMIN 2.9 g/dl (3.4-5.0); BLOOD UREA NITROGEN 75.4 mg/dL (7-18); MAGNESIUM 2.3 mg/dL (1.8-2.4)
[2021-10-29 02:27] LABS: PHOSPHOROUS 3.9 mg/dL (2.5-4.9)
[2021-10-29 02:29] LABS: BILIRUBIN,TOTAL 2.8 mg/dL (0.2-1)
[2021-10-29] MEDS: NOREPINEPHRINE D5W PREMIX 16,000 MCG/500 ML BAG IVPB SCH (07:13)
[2021-10-29 07:34] LABS: BASO % 0.1 % (0-2.0); EOS % 3.2 % (0-4.5); HEMATOCRIT 27.4 % (32.4-45.2); HEMOGLOBIN 8.9 GM/dL (10.7-15.3); LYMPH % 5.6 % (8-40); MCH 25.5 pg (25.7-33.7); MCHC 32.6 g/dl (32.0-36.0); MEAN CELL VOLUME 78.2 fl (80-96); MEAN PLT VOLUME 9.5 fl (7.5-11.1); MONO % 11.3 % (3.8-10.2); NEUT % 79.8 % (42.8-82.8); PLATELET COUNT 77 10^3/uL (134-434); RDW 20.6 % (11.6-15.6); WHITE BLOOD COUNT 8.7 K/mm3 (4.0-10.0)
[2021-10-29 07:56] LABS: CALCIUM 8.2 mg/dL (8.5-10.1)
[2021-10-29 07:57] LABS: ALBUMIN 2.8 g/dl (3.4-5.0); BLOOD UREA NITROGEN 74.6 mg/dL (7-18); MAGNESIUM 2.2 mg/dL (1.8-2.4)
[2021-10-29 08:00] LABS: PHOSPHOROUS 3.8 mg/dL (2.5-4.9)
[2021-10-29 08:01] LABS: BILIRUBIN,TOTAL 2.4 mg/dL (0.2-1); TOT PROT 4.8 g/dl (6.4-8.2)
[2021-10-29] MEDS: PANTOPRAZOLE SODIUM 40 MG VIAL IVPUSH SCH ×2 (09:43→21:29)
[2021-10-29] MEDS: MUPIROCIN 2% TOPICAL OINTMENT FOR DECOLONIZATION NS SCH ×2 (09:43→21:30)
[2021-10-29] MEDS: LEVOTHYROXINE SODIUM 100 MCG VIAL IVPUSH SCH (09:44)
[2021-10-29] MEDS: AMPICILLIN - 1 GM in SODIUM CHLORIDE 100 ML IVPB SCH ×3 (11:43→21:29)
[2021-10-29] MEDS: FUROSEMIDE 40 MG/4 ML INJECTABLE VIAL IVPUSH SCH (15:59)
[2021-10-29] MEDS: DEXMEDETOMIDINE PREMIX 400 MCG/100 ML BAG IVPB SCH (21:29)
[2021-10-29] MEDS: CHLORHEXIDINE GLUCONATE 4% CLEANSER FOR DECOLONIZATION TP SCH (21:30)
[2021-10-30] MEDS: NOREPINEPHRINE D5W PREMIX 16,000 MCG/500 ML BAG IVPB SCH (01:47)
[2021-10-30] MEDS: AMPICILLIN - 1 GM in SODIUM CHLORIDE 100 ML IVPB SCH ×4 (02:09→21:14)
[2021-10-30 07:06] LABS: BASO % 0.3 % (0-2.0); HEMATOCRIT 26.5 % (32.4-45.2); HEMOGLOBIN 8.5 GM/dL (10.7-15.3); LYMPH % 5.1 % (8-40); MCH 25.4 pg (25.7-33.7); MCHC 32.2 g/dl (32.0-36.0); MEAN CELL VOLUME 78.9 fl (80-96); MEAN PLT VOLUME 8.8 fl (7.5-11.1); MONO % 10.3 % (3.8-10.2); NEUT % 82.3 % (42.8-82.8); PLATELET COUNT 58 10^3/uL (134-434); RBC 3.36 M/mm3 (3.60-5.2); RDW 20.7 % (11.6-15.6); WHITE BLOOD COUNT 7.1 K/mm3 (4.0-10.0)
[2021-10-30 07:28] LABS: ALBUMIN 2.7 g/dl (3.4-5.0); BLOOD UREA NITROGEN 70.6 mg/dL (7-18); CALCIUM 8.4 mg/dL (8.5-10.1); MAGNESIUM 2.4 mg/dL (1.8-2.4)
[2021-10-30 07:32] LABS: PHOSPHOROUS 3.8 mg/dL (2.5-4.9)
[2021-10-30 07:33] LABS: CREATININE 1.9 mg/dL (0.55-1.3)
[2021-10-30 07:34] LABS: BILIRUBIN,TOTAL 1.7 mg/dL (0.2-1); TOT PROT 4.6 g/dl (6.4-8.2)
[2021-10-30] MEDS: LEVOTHYROXINE SODIUM 100 MCG VIAL IVPUSH SCH (10:29)
[2021-10-30] MEDS: FUROSEMIDE 40 MG/4 ML INJECTABLE VIAL IVPUSH SCH (10:29)
[2021-10-30] MEDS: PANTOPRAZOLE SODIUM 40 MG VIAL IVPUSH SCH ×2 (10:29→21:13)
[2021-10-30] MEDS: MUPIROCIN 2% TOPICAL OINTMENT FOR DECOLONIZATION NS SCH ×2 (10:30→21:14)
[2021-10-30] MEDS ORDERED: MIDODRINE HCL 5 MG TABLET PO ONE (11:00)
[2021-10-30] MEDS: ACETAMINOPHEN 325 MG TABLET (FP) PO PRN (12:11)
[2021-10-30] MEDS ORDERED: MIDODRINE HCL 5 MG TABLET PO SCH (14:00)
[2021-10-30] MEDS: MELATONIN 5 MG TABLETS PO PRN (21:12)
[2021-10-30] MEDS: MIDODRINE HCL 5 MG TABLET PO SCH (21:14)
[2021-10-30] MEDS: CHLORHEXIDINE GLUCONATE 4% CLEANSER FOR DECOLONIZATION TP SCH (21:14)
[2021-10-31] MEDS: AMPICILLIN - 1 GM in SODIUM CHLORIDE 100 ML IVPB SCH ×4 (02:02→22:02)
[2021-10-31] MEDS: PANTOPRAZOLE SODIUM 40 MG VIAL IVPUSH SCH ×2 (09:37→22:02)
[2021-10-31] MEDS: MIDODRINE HCL 5 MG TABLET PO SCH ×3 (09:37→17:56)
[2021-10-31] MEDS: FUROSEMIDE 40 MG/4 ML INJECTABLE VIAL IVPUSH SCH (09:37)
[2021-10-31] MEDS: MUPIROCIN 2% TOPICAL OINTMENT FOR DECOLONIZATION NS SCH ×2 (09:37→22:02)
[2021-10-31] MEDS: LEVOTHYROXINE SODIUM 100 MCG VIAL IVPUSH SCH (09:38)
[2021-10-31 11:13] LABS: BASO % 0.5 % (0-2.0); EOS % 2.3 % (0-4.5); HEMATOCRIT 25.4 % (32.4-45.2); HEMOGLOBIN 7.9 GM/dL (10.7-15.3); LYMPH % 6.3 % (8-40); MCH 25.5 pg (25.7-33.7); MCHC 31.2 g/dl (32.0-36.0); MEAN CELL VOLUME 81.5 fl (80-96); MEAN PLT VOLUME 8.7 fl (7.5-11.1); MONO % 10.9 % (3.8-10.2); PLATELET COUNT 46 10^3/uL (134-434); RBC 3.12 M/mm3 (3.60-5.2); RDW 22.2 % (11.6-15.6); WHITE BLOOD COUNT 4.7 K/mm3 (4.0-10.0)
[2021-10-31 11:34] LABS: ALBUMIN 2.6 g/dl (3.4-5.0); CALCIUM 8.2 mg/dL (8.5-10.1)
[2021-10-31 11:35] LABS: BLOOD UREA NITROGEN 66.1 mg/dL (7-18); MAGNESIUM 2.1 mg/dL (1.8-2.4)
[2021-10-31 11:37] LABS: PHOSPHOROUS 3.2 mg/dL (2.5-4.9)
[2021-10-31 11:38] LABS: CREATININE 1.8 mg/dL (0.55-1.3)
[2021-10-31 11:39] LABS: BILIRUBIN,TOTAL 1.9 mg/dL (0.2-1); TOT PROT 4.5 g/dl (6.4-8.2)
[2021-10-31 11:54] LABS: ANISOCYTOSIS 2+; MACROCYTOSIS 0
[2021-10-31] MEDS: ACETAMINOPHEN 325 MG TABLET (FP) PO PRN (14:03)
[2021-10-31] MEDS ORDERED: morphine SULFATE 4 MG/ML VIAL IVPUSH ONE (15:09)
[2021-10-31] MEDS ORDERED: ACETAMINOPHEN 325 MG TABLET (FP) PO PRN (15:11)
[2021-10-31] MEDS: MELATONIN 5 MG TABLETS PO PRN (22:02)
[2021-10-31] MEDS: CHLORHEXIDINE GLUCONATE 4% CLEANSER FOR DECOLONIZATION TP SCH (22:02)
[2021-11-01] MEDS: AMPICILLIN - 1 GM in SODIUM CHLORIDE 100 ML IVPB SCH ×4 (02:19→21:54)
[2021-11-01 07:49] LABS: CALCIUM 8.2 mg/dL (8.5-10.1)
[2021-11-01 07:50] LABS: ALBUMIN 2.6 g/dl (3.4-5.0); MAGNESIUM 2.1 mg/dL (1.8-2.4)
[2021-11-01 07:53] LABS: BASO % 0.4 % (0-2.0); EOS % 2.9 % (0-4.5); HEMATOCRIT 25.7 % (32.4-45.2); HEMOGLOBIN 8.1 GM/dL (10.7-15.3); LYMPH % 9.7 % (8-40); MCH 26.1 pg (25.7-33.7); MCHC 31.7 g/dl (32.0-36.0); MEAN CELL VOLUME 82.2 fl (80-96); MEAN PLT VOLUME 8.9 fl (7.5-11.1); MONO % 12.1 % (3.8-10.2); NEUT % 74.9 % (42.8-82.8); PLATELET COUNT 40 10^3/uL (134-434); RBC 3.13 M/mm3 (3.60-5.2); RDW 22.7 % (11.6-15.6)
[2021-11-01 07:54] LABS: BILIRUBIN,TOTAL 1.8 mg/dL (0.2-1); CREATININE 1.8 mg/dL (0.55-1.3); PHOSPHOROUS 3.3 mg/dL (2.5-4.9); TOT PROT 4.6 g/dl (6.4-8.2)
[2021-11-01 08:01] LABS: ADD RBC MORPHOLOGY YES
[2021-11-01] MEDS: MUPIROCIN 2% TOPICAL OINTMENT FOR DECOLONIZATION NS SCH (10:07)
[2021-11-01] MEDS: FUROSEMIDE 40 MG/4 ML INJECTABLE VIAL IVPUSH SCH (10:07)
[2021-11-01] MEDS: PANTOPRAZOLE SODIUM 40 MG VIAL IVPUSH SCH ×2 (10:07→21:54)
[2021-11-01] MEDS: MIDODRINE HCL 5 MG TABLET PO SCH ×3 (10:07→18:09)
[2021-11-01] MEDS ORDERED: POTASSIUM CHLORIDE ORAL LIQUID 20 MEQ/15 ML PO ONE (13:04)
[2021-11-01] MEDS: oxyCODONE HCL 5 MG TABLET PO PRN ×2 (15:02→23:17)
[2021-11-01] MEDS: MELATONIN 5 MG TABLETS PO PRN (20:55)
[2021-11-01] MEDS: CHLORHEXIDINE GLUCONATE 4% CLEANSER FOR DECOLONIZATION TP SCH (21:54)
[2021-11-02] MEDS: AMPICILLIN - 1 GM in SODIUM CHLORIDE 100 ML IVPB SCH (02:30)
[2021-11-02 07:11] LABS: BASO % 0.5 % (0-2.0); EOS % 3.4 % (0-4.5); HEMATOCRIT 27.9 % (32.4-45.2); HEMOGLOBIN 8.7 GM/dL (10.7-15.3); LYMPH % 9.8 % (8-40); MCH 25.9 pg (25.7-33.7); MCHC 31.1 g/dl (32.0-36.0); MEAN CELL VOLUME 83.3 fl (80-96); MEAN PLT VOLUME 8.8 fl (7.5-11.1); MONO % 12.8 % (3.8-10.2); NEUT % 73.5 % (42.8-82.8); RBC 3.35 M/mm3 (3.60-5.2); RDW 23.7 % (11.6-15.6); WHITE BLOOD COUNT 4.1 K/mm3 (4.0-10.0)
[2021-11-02 07:19] LABS: PLATELET COUNT 22 10^3/uL (134-434)
[2021-11-02 07:20] LABS: CALCIUM 8.5 mg/dL (8.5-10.1)
[2021-11-02 07:21] LABS: ALBUMIN 2.7 g/dl (3.4-5.0); MAGNESIUM 2.1 mg/dL (1.8-2.4)
[2021-11-02 07:24] LABS: CREATININE 1.7 mg/dL (0.55-1.3); PHOSPHOROUS 3.4 mg/dL (2.5-4.9)
[2021-11-02 07:27] LABS: BILIRUBIN,TOTAL 1.9 mg/dL (0.2-1); TOT PROT 4.9 g/dl (6.4-8.2)
[2021-11-02] MEDS: FUROSEMIDE 40 MG/4 ML INJECTABLE VIAL IVPUSH SCH (09:52)
[2021-11-02] MEDS: PANTOPRAZOLE SODIUM 40 MG VIAL IVPUSH SCH ×2 (09:52→21:21)
[2021-11-02] MEDS: MIDODRINE HCL 5 MG TABLET PO SCH ×3 (09:53→17:18)
[2021-11-02] MEDS: oxyCODONE HCL 5 MG TABLET PO PRN (17:18)
[2021-11-02] MEDS: MELATONIN 5 MG TABLETS PO PRN (20:54)
[2021-11-02] MEDS: CHLORHEXIDINE GLUCONATE 4% CLEANSER FOR DECOLONIZATION TP SCH (21:21)
[2021-11-03 07:55] LABS: ALBUMIN 2.6 g/dl (3.4-5.0); CALCIUM 8.5 mg/dL (8.5-10.1)
[2021-11-03 07:58] LABS: CREATININE 1.7 mg/dL (0.55-1.3); PHOSPHOROUS 3.1 mg/dL (2.5-4.9)
[2021-11-03 08:00] LABS: BASO % 0.3 % (0-2.0); HEMOGLOBIN 8.4 GM/dL (10.7-15.3); LYMPH % 8.7 % (8-40); MCH 26.1 pg (25.7-33.7); MCHC 30.9 g/dl (32.0-36.0); MEAN CELL VOLUME 84.4 fl (80-96); MEAN PLT VOLUME 8.4 fl (7.5-11.1); MONO % 11.5 % (3.8-10.2); NEUT % 77.5 % (42.8-82.8); PLATELET COUNT 40 10^3/uL (134-434); RDW 25.1 % (11.6-15.6); TOT PROT 4.6 g/dl (6.4-8.2); WHITE BLOOD COUNT 4.2 K/mm3 (4.0-10.0)
[2021-11-03 08:15] LABS: INR 1.3 (0.83-1.09)
[2021-11-03 08:18] LABS: ACTIVATED PTT 32.3 SECONDS (25.2-36.5)
[2021-11-03] MEDS: FUROSEMIDE 40 MG/4 ML INJECTABLE VIAL IVPUSH SCH (09:03)
[2021-11-03] MEDS: PANTOPRAZOLE SODIUM 40 MG VIAL IVPUSH SCH ×2 (09:03→20:59)
[2021-11-03] MEDS: MIDODRINE HCL 5 MG TABLET PO SCH ×3 (09:03→18:22)
[2021-11-03] MEDS: ACETAMINOPHEN 325 MG TABLET (FP) PO PRN (20:58)
[2021-11-03] MEDS: MELATONIN 5 MG TABLETS PO PRN (20:59)
[2021-11-03] MEDS: CHLORHEXIDINE GLUCONATE 4% CLEANSER FOR DECOLONIZATION TP SCH (20:59)
[2021-11-03] MEDS: oxyCODONE HCL 5 MG TABLET PO PRN (22:54)
[2021-11-04] MEDS: MIDODRINE HCL 5 MG TABLET PO SCH ×3 (11:14→17:04)
[2021-11-04] MEDS: PANTOPRAZOLE SODIUM 40 MG VIAL IVPUSH SCH ×2 (11:14→21:18)
[2021-11-04] MEDS: FUROSEMIDE 40 MG/4 ML INJECTABLE VIAL IVPUSH SCH (11:14)
[2021-11-04 12:22] LABS: BASO % 0.5 % (0-2.0); EOS % 2.5 % (0-4.5); HEMATOCRIT 28.3 % (32.4-45.2); HEMOGLOBIN 8.8 GM/dL (10.7-15.3); LYMPH % 7.9 % (8-40); MCH 26.5 pg (25.7-33.7); MEAN CELL VOLUME 85.4 fl (80-96); MEAN PLT VOLUME 9.3 fl (7.5-11.1); MONO % 10.7 % (3.8-10.2); NEUT % 78.4 % (42.8-82.8); PLATELET COUNT 42 10^3/uL (134-434); RBC 3.31 M/mm3 (3.60-5.2); WHITE BLOOD COUNT 3.9 K/mm3 (4.0-10.0)
[2021-11-04 12:24] LABS: INR 1.33 (0.83-1.09); PROTHROMBIN TIME (PATIENT) 15.3 SEC (9.7-13.0)
[2021-11-04 12:27] LABS: ACTIVATED PTT 30.9 SECONDS (25.2-36.5)
[2021-11-04 12:40] LABS: ALBUMIN 2.6 g/dl (3.4-5.0); BLOOD UREA NITROGEN 58.5 mg/dL (7-18); CALCIUM 8.7 mg/dL (8.5-10.1)
[2021-11-04 12:43] LABS: CREATININE 1.7 mg/dL (0.55-1.3)
[2021-11-04 12:45] LABS: BILIRUBIN,TOTAL 2.4 mg/dL (0.2-1); TOT PROT 4.6 g/dl (6.4-8.2)
[2021-11-04 12:53] LABS: ANISOCYTOSIS 2+; MACROCYTOSIS 1+; OVALOCYTE 1+
[2021-11-04] MEDS ORDERED: POTASSIUM CHLORIDE ORAL LIQUID 20 MEQ/15 ML PO ONE (15:46)
[2021-11-04] MEDS: CHLORHEXIDINE GLUCONATE 4% CLEANSER FOR DECOLONIZATION TP SCH (21:18)
[2021-11-05] MEDS: oxyCODONE HCL 5 MG TABLET PO PRN ×2 (02:20→21:28)
[2021-11-05 08:19] LABS: BASO % 0.6 % (0-2.0); EOS % 3.2 % (0-4.5); HEMATOCRIT 29.4 % (32.4-45.2); HEMOGLOBIN 9.3 GM/dL (10.7-15.3); LYMPH % 8.8 % (8-40); MCHC 31.5 g/dl (32.0-36.0); MEAN CELL VOLUME 85.8 fl (80-96); MEAN PLT VOLUME 8.9 fl (7.5-11.1); MONO % 9.8 % (3.8-10.2); NEUT % 77.6 % (42.8-82.8); PLATELET COUNT 49 10^3/uL (134-434); RBC 3.42 M/mm3 (3.60-5.2); RDW 28.2 % (11.6-15.6); WHITE BLOOD COUNT 4.8 K/mm3 (4.0-10.0)
[2021-11-05 08:27] LABS: CALCIUM 8.7 mg/dL (8.5-10.1)
[2021-11-05 08:28] LABS: ALBUMIN 2.7 g/dl (3.4-5.0); BLOOD UREA NITROGEN 57.1 mg/dL (7-18); MAGNESIUM 2.1 mg/dL (1.8-2.4)
[2021-11-05 08:31] LABS: CREATININE 1.6 mg/dL (0.55-1.3); PHOSPHOROUS 2.5 mg/dL (2.5-4.9)
[2021-11-05 08:32] LABS: BILIRUBIN,TOTAL 2.2 mg/dL (0.2-1); TOT PROT 4.9 g/dl (6.4-8.2)
[2021-11-05] MEDS: FUROSEMIDE 40 MG/4 ML INJECTABLE VIAL IVPUSH SCH (10:03)
[2021-11-05] MEDS: PANTOPRAZOLE SODIUM 40 MG VIAL IVPUSH SCH ×2 (10:03→21:11)
[2021-11-05] MEDS: MIDODRINE HCL 5 MG TABLET PO SCH ×3 (10:03→18:22)
[2021-11-05] MEDS ORDERED: POTASSIUM CHLORIDE ORAL LIQUID 20 MEQ/15 ML PO ONE (12:57)
[2021-11-05] MEDS: CHLORHEXIDINE GLUCONATE 4% CLEANSER FOR DECOLONIZATION TP SCH (21:08)
[2021-11-06] MEDS: PANTOPRAZOLE 40 MG TABLET PO SCH ×2 (09:18→21:14)
[2021-11-06] MEDS: MIDODRINE HCL 5 MG TABLET PO SCH ×3 (09:18→18:07)
[2021-11-06] MEDS: TORSEMIDE 20 MG TABLET (FP) PO SCH (09:18)
[2021-11-06] MEDS: oxyCODONE HCL 5 MG TABLET PO PRN (18:39)
[2021-11-06] MEDS: CHLORHEXIDINE GLUCONATE 4% CLEANSER FOR DECOLONIZATION TP SCH (21:15)
[2021-11-07] MEDS: oxyCODONE HCL 5 MG TABLET PO PRN ×2 (03:58→18:48)
[2021-11-07] MEDS: TORSEMIDE 20 MG TABLET (FP) PO SCH (09:21)
[2021-11-07] MEDS: PANTOPRAZOLE 40 MG TABLET PO SCH ×2 (09:21→22:25)
[2021-11-07] MEDS: MIDODRINE HCL 5 MG TABLET PO SCH ×3 (09:21→17:31)
[2021-11-07 12:49] LABS: BASO % 0.3 % (0-2.0); EOS % 1.6 % (0-4.5); HEMATOCRIT 30.9 % (32.4-45.2); HEMOGLOBIN 9.8 GM/dL (10.7-15.3); LYMPH % 6.9 % (8-40); MCH 27.5 pg (25.7-33.7); MCHC 31.7 g/dl (32.0-36.0); MEAN CELL VOLUME 86.7 fl (80-96); MEAN PLT VOLUME 9.4 fl (7.5-11.1); NEUT % 83.2 % (42.8-82.8); PLATELET COUNT 82 10^3/uL (134-434); RBC 3.56 M/mm3 (3.60-5.2); RDW 30.4 % (11.6-15.6); WHITE BLOOD COUNT 5.1 K/mm3 (4.0-10.0)
[2021-11-07 13:16] LABS: ALBUMIN 2.6 g/dl (3.4-5.0); CALCIUM 8.6 mg/dL (8.5-10.1)
[2021-11-07 13:17] LABS: BLOOD UREA NITROGEN 43.9 mg/dL (7-18)
[2021-11-07 13:19] LABS: CREATININE 1.4 mg/dL (0.55-1.3)
[2021-11-07 13:27] LABS: BILIRUBIN,TOTAL 2.2 mg/dL (0.2-1)
[2021-11-07] MEDS: MELATONIN 5 MG TABLETS PO PRN (22:25)
[2021-11-07] MEDS: CHLORHEXIDINE GLUCONATE 4% CLEANSER FOR DECOLONIZATION TP SCH (22:25)
[2021-11-08 07:33] LABS: BASO % 1.1 % (0-2.0); EOS % 2.1 % (0-4.5); HEMATOCRIT 29.8 % (32.4-45.2); HEMOGLOBIN 9.3 GM/dL (10.7-15.3); LYMPH % 5.2 % (8-40); MCHC 31.1 g/dl (32.0-36.0); MEAN CELL VOLUME 86.8 fl (80-96); MEAN PLT VOLUME 9.3 fl (7.5-11.1); NEUT % 82.6 % (42.8-82.8); PLATELET COUNT 86 10^3/uL (134-434); RBC 3.44 M/mm3 (3.60-5.2); RDW 30.1 % (11.6-15.6); WHITE BLOOD COUNT 4.3 K/mm3 (4.0-10.0)
[2021-11-08 07:54] LABS: CALCIUM 8.5 mg/dL (8.5-10.1)
[2021-11-08 07:55] LABS: ALBUMIN 2.4 g/dl (3.4-5.0); BLOOD UREA NITROGEN 39.6 mg/dL (7-18)
[2021-11-08 07:58] LABS: CREATININE 1.3 mg/dL (0.55-1.3)
[2021-11-08 08:00] LABS: TOT PROT 4.5 g/dl (6.4-8.2)
[2021-11-08 08:07] LABS: CARCINOEMBRYONIC ANTIGEN 13.1 ng/mL (0.0-4.7)
[2021-11-08] MEDS: TORSEMIDE 20 MG TABLET (FP) PO SCH (09:08)
[2021-11-08] MEDS: PANTOPRAZOLE 40 MG TABLET PO SCH ×2 (09:08→21:08)
[2021-11-08] MEDS: MIDODRINE HCL 5 MG TABLET PO SCH ×3 (09:08→17:25)
[2021-11-08] MEDS ORDERED: POTASSIUM CHLORIDE TABS 10 MEQ TABLET.ER (FP) PO ONE (13:00)
[2021-11-08] MEDS: oxyCODONE HCL 5 MG TABLET PO PRN ×2 (13:48→21:07)
[2021-11-08] MEDS ORDERED: MELATONIN 5 MG TABLETS PO PRN (18:59)
[2021-11-08] MEDS ORDERED: ACETAMINOPHEN 325 MG TABLET (FP) PO PRN ×2 (18:59)
[2021-11-09 09:29] LABS: HEMATOCRIT 31.2 % (32.4-45.2); HEMOGLOBIN 9.7 GM/dL (10.7-15.3); MCHC 31.2 g/dl (32.0-36.0); MEAN CELL VOLUME 86.5 fl (80-96); MEAN PLT VOLUME 8.7 fl (7.5-11.1); PLATELET COUNT 105 10^3/uL (134-434); RBC 3.61 M/mm3 (3.60-5.2); RDW 30.6 % (11.6-15.6); WHITE BLOOD COUNT 4.4 K/mm3 (4.0-10.0)
[2021-11-09] MEDS: PANTOPRAZOLE 40 MG TABLET PO SCH ×2 (09:40→21:30)
[2021-11-09] MEDS: TORSEMIDE 20 MG TABLET (FP) PO SCH (09:40)
[2021-11-09] MEDS: MIDODRINE HCL 5 MG TABLET PO SCH ×3 (09:41→17:08)
[2021-11-09 09:55] LABS: CALCIUM 8.5 mg/dL (8.5-10.1)
[2021-11-09 09:56] LABS: MAGNESIUM 1.7 mg/dL (1.8-2.4)
[2021-11-09 10:01] LABS: CREATININE 1.2 mg/dL (0.55-1.3)
[2021-11-09 10:02] LABS: BLOOD UREA NITROGEN 39.2 mg/dL (7-18)
[2021-11-09] MEDS ORDERED: MAGNESIUM 2GM/50ML STERILE WATER IVPB IVPB ONE (10:33)
[2021-11-09] MEDS ORDERED: POTASSIUM CHLORIDE TABS 10 MEQ TABLET.ER (FP) PO ONE (10:33)
[2021-11-09] MEDS ORDERED: BISACODYL 5 MG TABLET.DR (FP) PO ONE ×2 (13:00)
[2021-11-09] MEDS: ARTIFICIAL TEARS (POLYVINYL ALCOHOL) OPTH DROPS OU PRN (14:47)
[2021-11-09] MEDS: oxyCODONE HCL 5 MG TABLET PO PRN (14:48)
[2021-11-10] MEDS: oxyCODONE HCL 5 MG TABLET PO PRN (06:40)
[2021-11-10] MEDS ORDERED: POLYETHYLENE GLYCOL 3350 255 GM BTL PO ONE ×2 (08:00)
[2021-11-10] MEDS: TORSEMIDE 20 MG TABLET (FP) PO SCH (09:29)
[2021-11-10] MEDS: PANTOPRAZOLE 40 MG TABLET PO SCH ×2 (09:29→22:25)
[2021-11-10] MEDS: MIDODRINE HCL 5 MG TABLET PO SCH ×3 (09:29→18:18)
[2021-11-11] MEDS: oxyCODONE HCL 5 MG TABLET PO PRN ×2 (04:21→16:49)
[2021-11-11 09:24] LABS: EOS % 1.5 % (0-4.5); HEMATOCRIT 29.7 % (32.4-45.2); HEMOGLOBIN 9.6 GM/dL (10.7-15.3); MCH 28.1 pg (25.7-33.7); MCHC 32.4 g/dl (32.0-36.0); MEAN CELL VOLUME 86.7 fl (80-96); MEAN PLT VOLUME 8.4 fl (7.5-11.1); MONO % 10.1 % (3.8-10.2); NEUT % 79.4 % (42.8-82.8); PLATELET COUNT 107 10^3/uL (134-434); RBC 3.43 M/mm3 (3.60-5.2); RDW 30.6 % (11.6-15.6)
[2021-11-11 09:48] LABS: CALCIUM 8.8 mg/dL (8.5-10.1)
[2021-11-11 09:49] LABS: ALBUMIN 2.6 g/dl (3.4-5.0); BLOOD UREA NITROGEN 31.1 mg/dL (7-18); MAGNESIUM 1.8 mg/dL (1.8-2.4)
[2021-11-11 09:51] LABS: CREATININE 1.3 mg/dL (0.55-1.3)
[2021-11-11 09:53] LABS: BILIRUBIN,TOTAL 2.1 mg/dL (0.2-1); TOT PROT 4.7 g/dl (6.4-8.2)
[2021-11-11] MEDS ORDERED: MINERAL OIL ENEMA 133 ML ENEMA RC ONE (10:00)
[2021-11-11] MEDS: TORSEMIDE 20 MG TABLET (FP) PO SCH (10:23)
[2021-11-11] MEDS: MIDODRINE HCL 5 MG TABLET PO SCH ×3 (10:23→17:51)
[2021-11-11] MEDS: PANTOPRAZOLE 40 MG TABLET PO SCH ×2 (10:23→21:28)
[2021-11-11] MEDS: KCL 10 MEQ IVPB 10 MEQ/100 ML INFUS.BAG IVPB SCH ×3 (16:49→21:28)
[2021-11-11] MEDS: POTASSIUM CHLORIDE ORAL LIQUID 20 MEQ/15 ML PO ONE ×2 (16:49→16:54)
[2021-11-12] MEDS ORDERED: oxyCODONE HCL 5 MG TABLET PO ONE (00:08)
[2021-11-12] MEDS ORDERED: POTASSIUM CHLORIDE TABS 10 MEQ TABLET.ER (FP) PO ONE (09:06)
[2021-11-12 09:17] LABS: ALBUMIN 2.4 g/dl (3.4-5.0); BLOOD UREA NITROGEN 30.2 mg/dL (7-18); CALCIUM 8.6 mg/dL (8.5-10.1)
[2021-11-12 09:20] LABS: CREATININE 1.2 mg/dL (0.55-1.3)
[2021-11-12 09:22] LABS: BILIRUBIN,TOTAL 2.1 mg/dL (0.2-1); TOT PROT 4.6 g/dl (6.4-8.2)
[2021-11-12] MEDS ORDERED: POTASSIUM CHLORIDE TABS 20 MEQ TABLET.ER (FP) PO ONE (10:00)
[2021-11-12] MEDS ORDERED: FUROSEMIDE 40 MG/4 ML INJECTABLE VIAL IVPUSH SCH (10:00)
[2021-11-12] MEDS: PANTOPRAZOLE 40 MG TABLET PO SCH ×2 (10:10→21:59)
[2021-11-12] MEDS: POLYETHYLENE GLYCOL (HEALTHYLAX) 3350 17 GM PACKET PO SCH (10:10)
[2021-11-12] MEDS: MIDODRINE HCL 5 MG TABLET PO SCH ×3 (10:10→17:12)
[2021-11-12] MEDS: FUROSEMIDE 40 MG/4 ML INJECTABLE VIAL IVPUSH SCH (10:10)
[2021-11-12] MEDS ORDERED: POTASSIUM CHLORIDE ORAL LIQUID 20 MEQ/15 ML PO ONE (13:27)
[2021-11-12] MEDS: KCL 10 MEQ IVPB 10 MEQ/100 ML INFUS.BAG IVPB SCH ×2 (13:39→15:08)
[2021-11-12] MEDS: oxyCODONE HCL 5 MG TABLET PO PRN ×2 (14:15→21:58)
[2021-11-13] MEDS: PANTOPRAZOLE 40 MG TABLET PO SCH (09:18)
[2021-11-13] MEDS: MIDODRINE HCL 5 MG TABLET PO SCH ×2 (09:18→14:52)
[2021-11-13] MEDS: ARTIFICIAL TEARS (POLYVINYL ALCOHOL) OPTH DROPS OU PRN (09:19)
[2021-11-13] MEDS: FUROSEMIDE 40 MG/4 ML INJECTABLE VIAL IVPUSH SCH (09:19)
[2021-11-13] MEDS: POLYETHYLENE GLYCOL (HEALTHYLAX) 3350 17 GM PACKET PO SCH (09:19)
[2021-11-13] MEDS ORDERED: POTASSIUM CHLORIDE TABS 20 MEQ TABLET.ER (FP) PO SCH (10:00)
[2021-11-13 10:18] LABS: CALCIUM 8.9 mg/dL (8.5-10.1)
[2021-11-13 10:19] LABS: ALBUMIN 2.7 g/dl (3.4-5.0); BLOOD UREA NITROGEN 28.2 mg/dL (7-18)
[2021-11-13 10:21] LABS: CREATININE 1.4 mg/dL (0.55-1.3)
[2021-11-13 10:22] LABS: TOT PROT 5.1 g/dl (6.4-8.2)
[2021-11-13 10:24] LABS: BILIRUBIN,TOTAL 2.2 mg/dL (0.2-1)
[2021-11-13] MEDS: oxyCODONE HCL 5 MG TABLET PO PRN (10:28)
[2021-11-13 10:49] VITALS: RESP 18
[2021-11-13 14:27] VITALS: BP 118/64; PULSE 89; TEMP 98.8
[2021-11-14] MEDS ORDERED: FUROSEMIDE 40 MG TABLET (FP) PO SCH (10:00)
== END 2021-11-13 16:20 | DRG 377 ==
LOC: JER 11:17 → JERBED 15:30 → JICU 19:22 → J7W 11-08 18:21
PROVIDERS: ADMIT Family Medicine; ATTEND Family Medicine
PROC: 30233N1 Transfusion of Nonautologous Red Blood Cells into Peripheral Vein, Percutaneous Approach (ICD-10-PCS; 2021-10-28)
PROC: 30233L1 Transfusion of Nonautologous Fresh Plasma into Peripheral Vein, Percutaneous Approach (ICD-10-PCS; 2021-10-28)
PROC: 30233K1 Transfusion of Nonautologous Frozen Plasma into Peripheral Vein, Percutaneous Approach (ICD-10-PCS; 2021-10-28)
PROC: 30233R1 Transfusion of Nonautologous Platelets into Peripheral Vein, Percutaneous Approach (ICD-10-PCS; 2021-10-28)
PROC: 0DBE8ZX Excision of Large Intestine, Via Natural or Artificial Opening Endoscopic, Diagnostic (ICD-10-PCS; 2021-11-11)
PROC: 0DB68ZX Excision of Stomach, Via Natural or Artificial Opening Endoscopic, Diagnostic (ICD-10-PCS; principal; 2021-11-11 13:00)
DX: K92.2 Gastrointestinal hemorrhage, unspecified (principal); I50.33 Acute on chronic diastolic (congestive) heart failure; R57.1 Hypovolemic shock; I13.0 Hypertensive heart and chronic kidney disease with heart failure and stage 1 through stage 4 chronic kidney disease, or unspecified chronic kidney disease; N17.9 Acute kidney failure, unspecified; E87.1 Hypo-osmolality and hyponatremia; N39.0 Urinary tract infection, site not specified; I48.21 Permanent atrial fibrillation; Z68.41 Body mass index [BMI] 40.0-44.9, adult; D69.6 Thrombocytopenia, unspecified; D64.9 Anemia, unspecified; T45.515A Adverse effect of anticoagulants, initial encounter; Y92.89 Other specified places as the place of occurrence of the external cause; K57.90 Diverticulosis of intestine, part unspecified, without perforation or abscess without bleeding; K25.9 Gastric ulcer, unspecified as acute or chronic, without hemorrhage or perforation; E03.9 Hypothyroidism, unspecified; E66.9 Obesity, unspecified; M19.90 Unspecified osteoarthritis, unspecified site; N18.9 Chronic kidney disease, unspecified
CPT/HCPCS: 0241U-QW; 36415; 36430; 71045-TC-FY; 74181-TC; 76700-TC; 80048; 80053; 81003; 82105; 82272; 82378; 82728; 82803; 82962; 83540; 83550; 83615; 83735; 83880; 84100; 84439; 84443; 84484; 85025; 85027; 85045; 85362; 85610; 85730; 86301; 86304; 86705; 86708; 86850; 86900; 86901; 86922; 87040; 87086; 87186; 87340; 87517; 87522; 88305-TC; 93005; 93010; 97116-GP; 97162-GP; 99291; C9803-CS; P9017; P9034; P9058; U0003; U0005

== ENCOUNTER 2022-04-15 11:51 | Emergency (ER) | payer OTHER, BC ==
[2022-04-15 12:22] VITALS: RESP 18
[2022-04-15 13:57] LABS: BASO % 0.2 % (0-2.0); EOS % 1.2 % (0-4.5); LYMPH % 6.3 % (8-40); MCH 25.5 pg (25.7-33.7); MCHC 30.1 g/dl (32.0-36.0); MEAN CELL VOLUME 84.5 fl (80-96); MONO % 8.5 % (3.8-10.2); NEUT % 83.8 % (42.8-82.8); PLATELET COUNT 119 10^3/uL (134-434); RBC 1.89 M/mm3 (3.60-5.2); RDW 17.7 % (11.6-15.6); WHITE BLOOD COUNT 5.5 K/mm3 (4.0-10.0)
[2022-04-15 13:58] LABS: HEMOGLOBIN 4.8 GM/dL (10.7-15.3)
[2022-04-15 14:02] LABS: INR 1.65 (0.83-1.09); PROTHROMBIN TIME (PATIENT) 19.1 SEC (9.7-13.0)
[2022-04-15 14:19] LABS: CHLORIDE 91 mmol/L (98-107); SODIUM 134 mmol/L (136-145)
[2022-04-15 14:22] LABS: ALBUMIN 2.5 g/dl (3.4-5.0); CALCIUM 8.3 mg/dL (8.5-10.1); CO2 34 mmol/L (21-32); GLUCOSE,RANDOM 155 mg/dL (74-106)
[2022-04-15 14:26] LABS: CREATININE 3.5 mg/dL (0.55-1.3); SGOT/AST 43 U/L (15-37); SGPT/ALT 23 U/L (13-61)
[2022-04-15 14:27] LABS: BILIRUBIN,TOTAL 0.6 mg/dL (0.2-1)
[2022-04-15 14:28] LABS: ALK PHOS 122 U/L (45-117); TOT PROT 4.6 g/dl (6.4-8.2)
[2022-04-15 14:30] LABS: ANION GAP 10 MMOL/L (8-16); BLOOD UREA NITROGEN 131.4 mg/dL (7-18); N-TERMINAL BNP 3204.9 pg/ml (5-450)
[2022-04-15] MEDS ORDERED: PANTOPRAZOLE SODIUM 40 MG VIAL IVPUSH ONE (14:42)
[2022-04-15] MEDS ORDERED: PANTOPRAZOLE SODIUM 160 MG in SODIUM CHLORIDE 290 ML IVPB SCH (15:30)
[2022-04-15] MEDS ORDERED: KCL 10 MEQ IVPB 20 MEQ/200 ML INFUS.BAG IVPB ONE (15:46)
[2022-04-15] MEDS: KCL 10 MEQ IVPB 10 MEQ/100 ML INFUS.BAG IVPB SCH ×3 (16:02→18:03)
[2022-04-15] MEDS ORDERED: PANTOPRAZOLE SODIUM 40 MG VIAL ONE (16:05)
[2022-04-15 16:23] LABS: EPI CELLS 1 /uL (0-25.1); HYALINE CASTS 0 /uL (0-3.1); PH,URINE 5.5 (5.0-8.0); URINE APPEARANCE CLEAR; URINE BACTERIA >9,000 /uL (0-1359); URINE BILIRUBIN NEGATIVE (NEGATIVE); URINE COLOR YELLOW; URINE GLUCOSE (UA) NEGATIVE (NEGATIVE); URINE KETONE NEGATIVE (NEGATIVE); URINE LEUK ESTERASE 3+ (NEGATIVE); URINE NITRITE NEGATIVE (NEGATIVE); URINE PROTEIN NEGATIVE (NEGATIVE); URINE RBC 8 /uL (0-23.9); URINE UROBILINOGEN 0.2 mg/dL (0.2-1.0); URINE WBC 269 /uL (0-25.8)
[2022-04-15] MEDS ORDERED: KCL 10 MEQ IVPB 10 MEQ/100 ML INFUS.BAG IVPB ONE (18:02)
[2022-04-15 18:15] VITALS: TEMP 97.4
[2022-04-15 18:19] VITALS: BP 91/69; PULSE 99
== END 2022-04-15 18:40 | disposition short-term general hospital (02) ==
LOC: JER 11:51
PROC: 3E033GC Introduction of Other Therapeutic Substance into Peripheral Vein, Percutaneous Approach (ICD-10-PCS; principal; 2022-04-15)
PROC: 3E033GC Introduction of Other Therapeutic Substance into Peripheral Vein, Percutaneous Approach (ICD-10-PCS; 2022-04-15)
DX: K92.2 Gastrointestinal hemorrhage, unspecified (principal); D64.9 Anemia, unspecified
CPT/HCPCS: 0241U-QW; 36415; 36430; 71045-TC-FY; 80053; 81003; 82272; 82570; 83880; 83935; 84300; 84484; 85025; 85610; 85730; 86850; 86900; 86901; 86922; 87086; 87186; 93005; 93010; 99285-25; P9058